=== PATIENT | male | born 1955 | race Caucasian/White ===

== ENCOUNTER 2021-05-13 16:29 | Inpatient (IN) ==
[2021-05-14] MEDS ORDERED: Fluticasone Propionate Nasal 50 MCG/SPRAY BOTTLE NS PRN (15:49)
[2021-05-14] MEDS ORDERED: OXYCODONE 20 MG PO PRN (15:49)
[2021-05-14] MEDS ORDERED: D5% in Water 1,000 ML IVC PRN (15:52)
[2021-05-14] MEDS ORDERED: Dextrose Gel 15 GM/37.5 ML TUBE PO PRN ×2 (15:52)
[2021-05-14] MEDS ORDERED: *HR* Dextrose 50 % in Water (Syg) 50 ML SYRINGE IVP PRN (15:52)
[2021-05-14] MEDS: Insulin LISPRO 300 UNITS/3 ML VIAL SUBQ SCH (18:21)
[2021-05-14] MEDS ORDERED: Insulin DETEMIR 100 UNIT/ML per UNIT SUBQ ONE (21:00)
[2021-05-14] MEDS: Gabapentin 300 MG CAPSULE PO SCH (22:01)
[2021-05-14] MEDS: Baclofen 10 MG TABLET PO SCH (22:01)
[2021-05-14] MEDS: cloNIDine HCL 0.1 MG TABLET PO PRN (22:02)
[2021-05-14] MEDS: Multivit/Ca/Min/Fe/FA 1 TAB TABLET PO SCH (22:02)
[2021-05-14] MEDS: *HR* OxyCODONE Immed Rel 5 MG TABLET PO PRN (22:02)
[2021-05-14] MEDS: [UNRECOGNIZED DRUG - REMARK] PO SCH (22:03)
[2021-05-15] MEDS: cloNIDine HCL 0.1 MG TABLET PO PRN (05:30)
[2021-05-15] MEDS: *HR* Enoxaparin 40 MG/0.4 ML SYRINGE SQ SCH (05:30)
[2021-05-15] MEDS: *HR* OxyCODONE Immed Rel 5 MG TABLET PO PRN ×3 (05:31→22:20)
[2021-05-15 07:30] LABS: Basophils % 0.2 %; Eosinophils % 0.3 %; Hematocrit 35.4 % (37.5-50.1); Hemoglobin 11.6 g/dL (12.9-16.9); Immature Granulocytes % 2.3 % (0-4); Lymphocytes # 1.2 K/mcL (0.6-4.6); Lymphocytes % 8.8 %; Mean Corpuscular HGB Conc 32.8 g/dL (31.6-35.5); Mean Corpuscular Hemoglobin 29.1 pg (28.0-33.3); Mean Corpuscular Volume 88.9 fL (83.0-100.0); Mean Platelet Volume 9.5 fL (9.4-12.4); Monocytes # 1.2 K/mcL (0.0-1.3); Monocytes % 8.7 %; Platelet Count 313 K/mcL (140-400); Red Blood Count 3.98 M/mcL (4.19-5.50); Segmented Neutrophils % 79.7 %; White Blood Count 13.6 K/mcL (4.3-11.1)
[2021-05-15 07:31] LABS: Neutrophils # 10.8 K/mcL (1.6-8.9)
[2021-05-15 07:44] LABS: BUN/Creatinine Ratio 38 (6-26); Blood Urea Nitrogen 48 mg/dL (8-23); Calcium 9.2 mg/dL (8.6-10.3); Carbon Dioxide 25 mEq/L (23-29); Chloride 103 mEq/L (98-107); Glucose 265 mg/dL (70-105); Osmolality,Calculated 306 (280-300); Potassium 4.4 mEq/L (3.5-5.1); Sodium 137 mEq/L (136-145); eGFR For African Americans > 60 (> 60); eGFR For Non-African Americans 57 (> 60)
[2021-05-15] MEDS: Gabapentin 300 MG CAPSULE PO SCH ×3 (08:29→22:20)
[2021-05-15] MEDS: amLODIPine 5 MG TABLET PO SCH (08:29)
[2021-05-15] MEDS: *HR* Metformin 500 MG TABLET PO SCH ×2 (08:29→18:07)
[2021-05-15] MEDS: predniSONE 20 MG TABLET PO SCH (08:29)
[2021-05-15] MEDS: Baclofen 10 MG TABLET PO SCH ×3 (08:29→22:20)
[2021-05-15] MEDS: hydroCHLOROthiazide 25 MG TABLET PO SCH (08:29)
[2021-05-15] MEDS: lisinopriL 20 MG TABLET PO SCH (08:29)
[2021-05-15] MEDS: Aspirin Enteric Coated 81 MG Tablet PO SCH (08:30)
[2021-05-15] MEDS: Insulin LISPRO 300 UNITS/3 ML VIAL SUBQ SCH ×3 (08:41→17:50)
[2021-05-15] MEDS ORDERED: Insulin DETEMIR 100 UNIT/ML X5UNITS SUBQ SCH (09:00)
[2021-05-15] MEDS ORDERED: Insulin DETEMIR 100 UNIT/ML per UNIT SUBQ ONE (21:00)
[2021-05-15] MEDS: Multivit/Ca/Min/Fe/FA 1 TAB TABLET PO SCH (22:20)
[2021-05-15] MEDS: [UNRECOGNIZED DRUG - REMARK] PO SCH (23:40)
[2021-05-16] MEDS: *HR* OxyCODONE Immed Rel 5 MG TABLET PO PRN ×3 (04:42→20:38)
[2021-05-16] MEDS: *HR* Enoxaparin 40 MG/0.4 ML SYRINGE SQ SCH (04:43)
[2021-05-16] MEDS: Insulin LISPRO 300 UNITS/3 ML VIAL SUBQ SCH ×3 (08:11→16:55)
[2021-05-16] MEDS: Baclofen 10 MG TABLET PO SCH ×3 (08:12→20:38)
[2021-05-16] MEDS: *HR* Metformin 500 MG TABLET PO SCH ×2 (08:13→16:55)
[2021-05-16] MEDS: hydroCHLOROthiazide 25 MG TABLET PO SCH (08:13)
[2021-05-16] MEDS: amLODIPine 5 MG TABLET PO SCH (08:13)
[2021-05-16] MEDS: predniSONE 20 MG TABLET PO SCH (08:13)
[2021-05-16] MEDS: Aspirin Enteric Coated 81 MG Tablet PO SCH (08:13)
[2021-05-16] MEDS: Gabapentin 300 MG CAPSULE PO SCH ×3 (08:13→20:39)
[2021-05-16] MEDS: lisinopriL 20 MG TABLET PO SCH (08:13)
[2021-05-16] MEDS: Insulin DETEMIR 100 UNIT/ML X5UNITS SUBQ SCH ×2 (08:20→20:35)
[2021-05-16] MEDS: Multivit/Ca/Min/Fe/FA 1 TAB TABLET PO SCH (20:38)
[2021-05-16] MEDS: [UNRECOGNIZED DRUG - REMARK] PO SCH (20:39)
[2021-05-17] MEDS: Acetaminophen 325 MG TABLET PO PRN ×2 (02:34→20:51)
[2021-05-17] MEDS: *HR* Enoxaparin 40 MG/0.4 ML SYRINGE SQ SCH (04:50)
[2021-05-17 06:01] LABS: Basophils % 0.3 %; Eosinophils # 0.1 K/mcL (0.0-0.6); Eosinophils % 0.7 %; Hemoglobin 11.3 g/dL (12.9-16.9); Immature Granulocytes % 2.2 % (0-4); Lymphocytes # 1.3 K/mcL (0.6-4.6); Lymphocytes % 8.2 %; Mean Corpuscular HGB Conc 32.3 g/dL (31.6-35.5); Mean Corpuscular Hemoglobin 29.2 pg (28.0-33.3); Mean Corpuscular Volume 90.4 fL (83.0-100.0); Mean Platelet Volume 9.8 fL (9.4-12.4); Monocytes % 6.6 %; Neutrophils # 12.8 K/mcL (1.6-8.9); Platelet Count 353 K/mcL (140-400); Red Blood Count 3.87 M/mcL (4.19-5.50); Red Cell Distribution Width 13.2 % (11.5-14.5); White Blood Count 15.6 K/mcL (4.3-11.1)
[2021-05-17 06:17] LABS: Basophils # 0.1 K/mcL (0.0-0.2)
[2021-05-17 06:24] LABS: Calcium 8.6 mg/dL (8.6-10.3); Potassium 4.5 mEq/L (3.5-5.1)
[2021-05-17] MEDS: Baclofen 10 MG TABLET PO SCH ×3 (08:26→20:52)
[2021-05-17] MEDS: Insulin DETEMIR 100 UNIT/ML X5UNITS SUBQ SCH ×2 (08:26→20:56)
[2021-05-17] MEDS: Insulin LISPRO 300 UNITS/3 ML VIAL SUBQ SCH ×3 (08:26→16:44)
[2021-05-17] MEDS: *HR* Metformin 500 MG TABLET PO SCH ×2 (08:27→16:43)
[2021-05-17] MEDS: amLODIPine 5 MG TABLET PO SCH (08:27)
[2021-05-17] MEDS: lisinopriL 20 MG TABLET PO SCH (08:27)
[2021-05-17] MEDS: predniSONE 20 MG TABLET PO SCH (08:27)
[2021-05-17] MEDS: Gabapentin 300 MG CAPSULE PO SCH ×3 (08:27→20:52)
[2021-05-17] MEDS: hydroCHLOROthiazide 25 MG TABLET PO SCH (08:27)
[2021-05-17] MEDS: Aspirin Enteric Coated 81 MG Tablet PO SCH (08:27)
[2021-05-17] MEDS: *HR* OxyCODONE Immed Rel 5 MG TABLET PO PRN ×2 (09:40→16:49)
[2021-05-17] MEDS: Multivit/Ca/Min/Fe/FA 1 TAB TABLET PO SCH (20:53)
[2021-05-17] MEDS: [UNRECOGNIZED DRUG - REMARK] PO SCH (20:56)
[2021-05-18] MEDS: *HR* OxyCODONE Immed Rel 5 MG TABLET PO PRN ×3 (00:17→21:30)
[2021-05-18] MEDS: *HR* Enoxaparin 40 MG/0.4 ML SYRINGE SQ SCH (05:33)
[2021-05-18] MEDS: Aspirin Enteric Coated 81 MG Tablet PO SCH (08:22)
[2021-05-18] MEDS: *HR* Metformin 500 MG TABLET PO SCH ×2 (08:23→16:35)
[2021-05-18] MEDS: amLODIPine 5 MG TABLET PO SCH (08:23)
[2021-05-18] MEDS: Gabapentin 300 MG CAPSULE PO SCH ×3 (08:23→20:13)
[2021-05-18] MEDS: hydroCHLOROthiazide 25 MG TABLET PO SCH (08:23)
[2021-05-18] MEDS: Baclofen 10 MG TABLET PO SCH ×3 (08:24→20:12)
[2021-05-18] MEDS: lisinopriL 20 MG TABLET PO SCH (08:24)
[2021-05-18] MEDS: Insulin DETEMIR 100 UNIT/ML X5UNITS SUBQ SCH ×2 (08:24→21:30)
[2021-05-18] MEDS: Insulin LISPRO 300 UNITS/3 ML VIAL SUBQ SCH ×3 (08:25→16:36)
[2021-05-18] MEDS: Multivit/Ca/Min/Fe/FA 1 TAB TABLET PO SCH (20:14)
[2021-05-18] MEDS: [UNRECOGNIZED DRUG - REMARK] PO SCH (20:15)
[2021-05-19 04:50] LABS: Basophils % 0.3 %; Eosinophils # 0.3 K/mcL (0.0-0.6); Eosinophils % 2.6 %; Hemoglobin 10.2 g/dL (12.9-16.9); Immature Granulocytes % 1.3 % (0-4); Lymphocytes # 1.6 K/mcL (0.6-4.6); Lymphocytes % 14.2 %; Mean Corpuscular HGB Conc 32.9 g/dL (31.6-35.5); Mean Corpuscular Hemoglobin 29.7 pg (28.0-33.3); Mean Corpuscular Volume 90.1 fL (83.0-100.0); Mean Platelet Volume 10.1 fL (9.4-12.4); Monocytes # 0.9 K/mcL (0.0-1.3); Monocytes % 8.3 %; Neutrophils # 8.3 K/mcL (1.6-8.9); Platelet Count 293 K/mcL (140-400); Red Blood Count 3.44 M/mcL (4.19-5.50); Red Cell Distribution Width 13.5 % (11.5-14.5); Segmented Neutrophils % 73.3 %; White Blood Count 11.3 K/mcL (4.3-11.1)
[2021-05-19 05:04] LABS: Calcium 8.1 mg/dL (8.6-10.3)
[2021-05-19] MEDS: *HR* Enoxaparin 40 MG/0.4 ML SYRINGE SQ SCH (06:02)
[2021-05-19] MEDS: Insulin LISPRO 300 UNITS/3 ML VIAL SUBQ SCH ×3 (08:15→18:02)
[2021-05-19] MEDS: Insulin DETEMIR 100 UNIT/ML X5UNITS SUBQ SCH ×2 (08:16→20:07)
[2021-05-19] MEDS: Baclofen 10 MG TABLET PO SCH ×3 (08:18→20:06)
[2021-05-19] MEDS: Aspirin Enteric Coated 81 MG Tablet PO SCH (08:19)
[2021-05-19] MEDS: Gabapentin 300 MG CAPSULE PO SCH ×3 (08:19→20:06)
[2021-05-19] MEDS: *HR* Metformin 500 MG TABLET PO SCH ×2 (08:19→18:02)
[2021-05-19] MEDS: lisinopriL 20 MG TABLET PO SCH (08:19)
[2021-05-19] MEDS: amLODIPine 5 MG TABLET PO SCH (08:19)
[2021-05-19] MEDS: *HR* OxyCODONE Immed Rel 5 MG TABLET PO PRN ×2 (08:27→20:06)
[2021-05-19 19:49] LABS: Estimated Average Glucose 154 mg/dl
[2021-05-19] MEDS: Multivit/Ca/Min/Fe/FA 1 TAB TABLET PO SCH (20:06)
[2021-05-19] MEDS: Doxycycline 100 MG CAPSULE PO SCH (20:06)
[2021-05-19] MEDS: [UNRECOGNIZED DRUG - REMARK] PO SCH (20:11)
[2021-05-20] MEDS: *HR* Enoxaparin 40 MG/0.4 ML SYRINGE SQ SCH (05:30)
[2021-05-20] MEDS: *HR* Metformin 500 MG TABLET PO SCH ×2 (08:07→17:05)
[2021-05-20] MEDS: Doxycycline 100 MG CAPSULE PO SCH ×2 (08:07→22:34)
[2021-05-20] MEDS: Aspirin Enteric Coated 81 MG Tablet PO SCH (08:07)
[2021-05-20] MEDS: *HR* OxyCODONE Immed Rel 5 MG TABLET PO PRN ×3 (08:07→22:33)
[2021-05-20] MEDS: lisinopriL 20 MG TABLET PO SCH (08:08)
[2021-05-20] MEDS: Insulin LISPRO 300 UNITS/3 ML VIAL SUBQ SCH ×3 (08:08→17:05)
[2021-05-20] MEDS: Insulin DETEMIR 100 UNIT/ML X5UNITS SUBQ SCH ×2 (08:08→22:43)
[2021-05-20] MEDS: amLODIPine 5 MG TABLET PO SCH (08:08)
[2021-05-20] MEDS: Baclofen 10 MG TABLET PO SCH ×3 (08:08→22:35)
[2021-05-20] MEDS: Gabapentin 300 MG CAPSULE PO SCH ×3 (08:08→22:34)
[2021-05-20] MEDS ORDERED: Bisacodyl 10 MG RECTAL SUPPOSITORY RC PRN (18:53)
[2021-05-20] MEDS: Multivit/Ca/Min/Fe/FA 1 TAB TABLET PO SCH (22:33)
[2021-05-20] MEDS: [UNRECOGNIZED DRUG - REMARK] PO SCH (22:37)
[2021-05-21] MEDS: *HR* Enoxaparin 40 MG/0.4 ML SYRINGE SQ SCH (06:56)
[2021-05-21] MEDS: Insulin LISPRO 300 UNITS/3 ML VIAL SUBQ SCH ×3 (08:12→17:38)
[2021-05-21] MEDS: Insulin DETEMIR 100 UNIT/ML X5UNITS SUBQ SCH ×2 (08:13→20:34)
[2021-05-21] MEDS: Gabapentin 300 MG CAPSULE PO SCH ×3 (08:14→20:22)
[2021-05-21] MEDS: *HR* Metformin 500 MG TABLET PO SCH ×2 (08:14→17:37)
[2021-05-21] MEDS: Baclofen 10 MG TABLET PO SCH ×3 (08:14→20:22)
[2021-05-21] MEDS: Aspirin Enteric Coated 81 MG Tablet PO SCH (08:14)
[2021-05-21] MEDS: lisinopriL 20 MG TABLET PO SCH (08:14)
[2021-05-21] MEDS: amLODIPine 5 MG TABLET PO SCH (08:15)
[2021-05-21] MEDS: Doxycycline 100 MG CAPSULE PO SCH ×2 (08:15→20:22)
[2021-05-21] MEDS: *HR* OxyCODONE Immed Rel 5 MG TABLET PO PRN (09:39)
[2021-05-21] MEDS: Sennosides/Docusate Sodium TABLET PO PRN (20:22)
[2021-05-21] MEDS: Multivit/Ca/Min/Fe/FA 1 TAB TABLET PO SCH (20:22)
[2021-05-21] MEDS: [UNRECOGNIZED DRUG - REMARK] PO SCH (20:23)
[2021-05-22] MEDS: *HR* Enoxaparin 40 MG/0.4 ML SYRINGE SQ SCH (05:33)
[2021-05-22] MEDS: lisinopriL 20 MG TABLET PO SCH (08:28)
[2021-05-22] MEDS: *HR* Metformin 500 MG TABLET PO SCH ×2 (08:28→16:37)
[2021-05-22] MEDS: Gabapentin 300 MG CAPSULE PO SCH ×3 (08:29→20:35)
[2021-05-22] MEDS: Baclofen 10 MG TABLET PO SCH ×3 (08:29→20:36)
[2021-05-22] MEDS: Aspirin Enteric Coated 81 MG Tablet PO SCH (08:29)
[2021-05-22] MEDS: amLODIPine 5 MG TABLET PO SCH (08:29)
[2021-05-22] MEDS: Sennosides/Docusate Sodium TABLET PO PRN (08:29)
[2021-05-22] MEDS: Doxycycline 100 MG CAPSULE PO SCH (08:29)
[2021-05-22] MEDS: Insulin LISPRO 300 UNITS/3 ML VIAL SUBQ SCH ×3 (08:30→16:31)
[2021-05-22] MEDS: Insulin DETEMIR 100 UNIT/ML X5UNITS SUBQ SCH ×2 (08:30→20:53)
[2021-05-22] MEDS: *HR* OxyCODONE Immed Rel 5 MG TABLET PO PRN (12:08)
[2021-05-22] MEDS: Sennosides/Docusate Sodium TABLET PO SCH (20:36)
[2021-05-22] MEDS: Multivit/Ca/Min/Fe/FA 1 TAB TABLET PO SCH (20:36)
[2021-05-22] MEDS: [UNRECOGNIZED DRUG - REMARK] PO SCH (20:36)
[2021-05-23] MEDS: *HR* Enoxaparin 40 MG/0.4 ML SYRINGE SQ SCH (05:21)
[2021-05-23] MEDS: Sennosides/Docusate Sodium TABLET PO SCH ×2 (08:43→20:14)
[2021-05-23] MEDS: *HR* Metformin 500 MG TABLET PO SCH ×2 (08:43→16:44)
[2021-05-23] MEDS: lisinopriL 20 MG TABLET PO SCH (08:43)
[2021-05-23] MEDS: Aspirin Enteric Coated 81 MG Tablet PO SCH (08:43)
[2021-05-23] MEDS: Gabapentin 300 MG CAPSULE PO SCH ×3 (08:43→20:13)
[2021-05-23] MEDS: amLODIPine 5 MG TABLET PO SCH (08:43)
[2021-05-23] MEDS: Baclofen 10 MG TABLET PO SCH ×3 (08:44→20:15)
[2021-05-23] MEDS: Insulin DETEMIR 100 UNIT/ML X5UNITS SUBQ SCH ×2 (08:44→20:39)
[2021-05-23] MEDS: Insulin LISPRO 300 UNITS/3 ML VIAL SUBQ SCH ×3 (08:46→16:47)
[2021-05-23] MEDS: *HR* OxyCODONE Immed Rel 5 MG TABLET PO PRN ×3 (08:55→23:25)
[2021-05-23] MEDS: Multivit/Ca/Min/Fe/FA 1 TAB TABLET PO SCH (20:13)
[2021-05-23] MEDS: [UNRECOGNIZED DRUG - REMARK] PO SCH (20:15)
[2021-05-24] MEDS: *HR* Enoxaparin 40 MG/0.4 ML SYRINGE SQ SCH (06:55)
[2021-05-24] MEDS: Sennosides/Docusate Sodium TABLET PO SCH ×2 (08:49→20:35)
[2021-05-24] MEDS: amLODIPine 5 MG TABLET PO SCH (08:49)
[2021-05-24] MEDS: Gabapentin 300 MG CAPSULE PO SCH ×3 (08:49→20:34)
[2021-05-24] MEDS: *HR* Metformin 500 MG TABLET PO SCH ×2 (08:49→15:42)
[2021-05-24] MEDS: Baclofen 10 MG TABLET PO SCH ×3 (08:49→20:35)
[2021-05-24] MEDS: lisinopriL 20 MG TABLET PO SCH (08:50)
[2021-05-24] MEDS: Insulin DETEMIR 100 UNIT/ML X5UNITS SUBQ SCH ×2 (08:50→20:35)
[2021-05-24] MEDS: Aspirin Enteric Coated 81 MG Tablet PO SCH (08:50)
[2021-05-24] MEDS: Insulin LISPRO 300 UNITS/3 ML VIAL SUBQ SCH ×3 (08:54→18:01)
[2021-05-24] MEDS: *HR* OxyCODONE Immed Rel 5 MG TABLET PO PRN ×2 (13:36→22:59)
[2021-05-24] MEDS: Multivit/Ca/Min/Fe/FA 1 TAB TABLET PO SCH (20:34)
[2021-05-24] MEDS: [UNRECOGNIZED DRUG - REMARK] PO SCH (20:34)
[2021-05-24] MEDS: Acetaminophen 325 MG TABLET PO PRN (20:42)
[2021-05-24] MEDS ORDERED: Ondansetron ODT 4 MG TAB.RAPDIS SL PRN (23:13)
[2021-05-25] MEDS: *HR* Enoxaparin 40 MG/0.4 ML SYRINGE SQ SCH (05:36)
[2021-05-25 07:33] LABS: Hemoglobin 9.5 g/dL (12.9-16.9); Mean Corpuscular HGB Conc 31.7 g/dL (31.6-35.5); Mean Corpuscular Hemoglobin 29.1 pg (28.0-33.3); Mean Platelet Volume 10.4 fL (9.4-12.4); Platelet Count 254 K/mcL (140-400); Red Blood Count 3.26 M/mcL (4.19-5.50); Red Cell Distribution Width 13.9 % (11.5-14.5); White Blood Count 10.2 K/mcL (4.3-11.1)
[2021-05-25 07:58] LABS: Alanine Aminotransferase 15 Units/L (7-52); Albumin 2.5 g/dL (3.5-5.7); Albumin/Globulin Ratio 0.8 (1.1-2.2); Alkaline Phosphatase 61 Units/L (34-104); Aspartate Amino Transferase 12 Units/L (13-39); BUN/Creatinine Ratio 31 (6-26); Bilirubin,Total 0.4 mg/dL (0.3-1.0); Blood Urea Nitrogen 41 mg/dL (8-23); Calcium 8.2 mg/dL (8.6-10.3); Carbon Dioxide 24 mEq/L (23-29); Chloride 105 mEq/L (98-107); Globulin 3.1 g/dL (2.4-3.5); Glucose 185 mg/dL (70-105); Magnesium 1.4 mg/dL (1.6-2.6); Osmolality,Calculated 301 (280-300); Potassium 4.8 mEq/L (3.5-5.1); Sodium 138 mEq/L (136-145); Total Protein 5.6 g/dL (6.4-8.9); eGFR For African Americans > 60 (> 60); eGFR For Non-African Americans 54 (> 60)
[2021-05-25] MEDS: Insulin LISPRO 300 UNITS/3 ML VIAL SUBQ SCH ×3 (08:16→17:05)
[2021-05-25] MEDS: Insulin DETEMIR 100 UNIT/ML X5UNITS SUBQ SCH ×2 (08:17→23:47)
[2021-05-25] MEDS: Aspirin Enteric Coated 81 MG Tablet PO SCH (08:19)
[2021-05-25] MEDS: *HR* Metformin 500 MG TABLET PO SCH (08:19)
[2021-05-25] MEDS: Gabapentin 300 MG CAPSULE PO SCH ×3 (08:19→23:38)
[2021-05-25] MEDS: Sennosides/Docusate Sodium TABLET PO SCH ×2 (08:19→23:37)
[2021-05-25] MEDS: Baclofen 10 MG TABLET PO SCH ×3 (08:19→23:38)
[2021-05-25] MEDS: lisinopriL 20 MG TABLET PO SCH (08:20)
[2021-05-25] MEDS: amLODIPine 5 MG TABLET PO SCH (08:20)
[2021-05-25] MEDS: *HR* OxyCODONE Immed Rel 5 MG TABLET PO PRN ×3 (08:23→23:49)
[2021-05-25] MEDS ORDERED: Isovue-370 500 ML BOTTLE IVP ONE (12:51)
[2021-05-25] MEDS: Multivit/Ca/Min/Fe/FA 1 TAB TABLET PO SCH (23:38)
[2021-05-25] MEDS: [UNRECOGNIZED DRUG - REMARK] PO SCH (23:41)
[2021-05-26] MEDS: *HR* Enoxaparin 40 MG/0.4 ML SYRINGE SQ SCH (06:05)
[2021-05-26] MEDS: Insulin LISPRO 300 UNITS/3 ML VIAL SUBQ SCH ×3 (08:25→17:32)
[2021-05-26] MEDS: lisinopriL 20 MG TABLET PO SCH (08:26)
[2021-05-26] MEDS: Gabapentin 300 MG CAPSULE PO SCH ×3 (08:26→21:09)
[2021-05-26] MEDS: Insulin DETEMIR 100 UNIT/ML X5UNITS SUBQ SCH ×2 (08:26→21:18)
[2021-05-26] MEDS: Aspirin Enteric Coated 81 MG Tablet PO SCH (08:27)
[2021-05-26] MEDS: *HR* OxyCODONE Immed Rel 5 MG TABLET PO PRN ×3 (08:27→21:10)
[2021-05-26] MEDS: amLODIPine 5 MG TABLET PO SCH (08:27)
[2021-05-26] MEDS: Baclofen 10 MG TABLET PO SCH ×3 (08:27→21:10)
[2021-05-26] MEDS: Sennosides/Docusate Sodium TABLET PO SCH ×2 (08:28→21:09)
[2021-05-26] MEDS: Magnesium Oxide 400 MG TABLET PO SCH ×2 (12:19→21:11)
[2021-05-26 14:58] LABS: Hematocrit 29.9 % (37.5-50.1); Hemoglobin 9.5 g/dL (12.9-16.9); Mean Corpuscular HGB Conc 31.8 g/dL (31.6-35.5); Mean Corpuscular Hemoglobin 29.3 pg (28.0-33.3); Mean Corpuscular Volume 92.3 fL (83.0-100.0); Mean Platelet Volume 9.9 fL (9.4-12.4); Platelet Count 246 K/mcL (140-400); Red Blood Count 3.24 M/mcL (4.19-5.50); Red Cell Distribution Width 13.8 % (11.5-14.5); White Blood Count 12.3 K/mcL (4.3-11.1)
[2021-05-26 15:15] LABS: Calcium 8.8 mg/dL (8.6-10.3); Potassium 5.6 mEq/L (3.5-5.1)
[2021-05-26] MEDS: Piperacillin/Tazobactam 3.375 GM in 0.9 % Sodium Chloride Mini Bag 100 ML IVPB SCH (15:33)
[2021-05-26 21:05] VITALS: BP 136/75; PULSE 66; RESP 16; TEMP 98.5; O2SAT 99
[2021-05-26] MEDS: Multivit/Ca/Min/Fe/FA 1 TAB TABLET PO SCH (21:09)
[2021-05-26] MEDS: [UNRECOGNIZED DRUG - REMARK] PO SCH (21:12)
[2021-05-27] MEDS: Piperacillin/Tazobactam 3.375 GM in 0.9 % Sodium Chloride Mini Bag 100 ML IVPB SCH (01:32)
== END 2021-05-27 02:03 | disposition short-term general hospital (02) | DRG 945 ==
LOC: INPGRE 05-14 17:21
PROVIDERS: ADMIT Family Medicine; ATTEND Family Medicine

== ENCOUNTER 2022-03-09 17:40 | Inpatient (IN) ==
[2022-03-11] MEDS ORDERED: *HR* OxyCODONE Immed Rel 5 MG TABLET PO PRN (14:18)
[2022-03-11] MEDS ORDERED: *HR* OxyCODONE/APAP 5/325 TABLET PO SCH (14:30)
[2022-03-11] MEDS: *HR* OxyCODONE Immed Rel 5 MG TABLET PO PRN ×3 (16:50→23:51)
[2022-03-11] MEDS: Simethicone 80 MG TAB.CHEW PO SCH ×2 (16:50→20:52)
[2022-03-11] MEDS: cefTRIAXone 2,000 MG in 0.9 % Sodium Chloride 20 ML IVP SCH (16:50)
[2022-03-11] MEDS ORDERED: Dextrose Gel 15 GM/37.5 ML TUBE PO PRN ×2 (16:57)
[2022-03-11] MEDS ORDERED: *HR* Dextrose 50 % in Water (Syg) 50 ML SYRINGE IVP PRN (16:57)
[2022-03-11] MEDS ORDERED: D5% in Water 1,000 ML IVC PRN (16:57)
[2022-03-11] MEDS: Insulin LISPRO 300 UNITS/3 ML VIAL SUBQ SCH ×2 (16:59→20:54)
[2022-03-11] MEDS: polyethylene glycoL 3350 17 GM POWD.PACK PO SCH (20:46)
[2022-03-11] MEDS: Baclofen 10 MG TABLET PO SCH (20:47)
[2022-03-11] MEDS: Apixaban 5 MG TABLET PO SCH (20:48)
[2022-03-11] MEDS: Melatonin 3 MG TABLET PO SCH (20:50)
[2022-03-11] MEDS: Sennosides/Docusate Sodium TABLET PO SCH (20:50)
[2022-03-11] MEDS: Ascorbic Acid 500 MG TABLET PO SCH (20:50)
[2022-03-11] MEDS: Gabapentin 400 MG CAPSULE PO SCH (20:51)
[2022-03-11] MEDS: traZODone 50 MG TABLET PO SCH (20:51)
[2022-03-11] MEDS: CALCIPOTRIENE TP SCH (20:54)
[2022-03-11] MEDS ORDERED: [UNRECOGNIZED DRUG - OTHER] PO SCH (21:00)
[2022-03-11] MEDS: Acetaminophen 325 MG TABLET PO PRN (22:38)
[2022-03-12] MEDS ORDERED: Morphine Sulfate 2 MG/ML SYRINGE IVP ONE (01:23)
[2022-03-12] MEDS: Ondansetron ODT 4 MG TAB.RAPDIS SL PRN (03:36)
[2022-03-12 05:03] LABS: Basophils # 0.1 K/mcL (0.0-0.2); Basophils % 0.9 %; Eosinophils # 0.5 K/mcL (0.0-0.6); Eosinophils % 4.8 %; Hematocrit 28.1 % (37.5-50.1); Hemoglobin 8.6 g/dL (12.9-16.9); Immature Granulocytes % 1.9 % (0-4); Lymphocytes # 1.1 K/mcL (0.6-4.6); Lymphocytes % 11.8 %; Mean Corpuscular HGB Conc 30.6 g/dL (31.6-35.5); Mean Corpuscular Hemoglobin 27.7 pg (28.0-33.3); Mean Corpuscular Volume 90.4 fL (83.0-100.0); Mean Platelet Volume 9.9 fL (9.4-12.4); Monocytes # 0.9 K/mcL (0.0-1.3); Neutrophils # 6.9 K/mcL (1.6-8.9); Platelet Count 401 K/mcL (140-400); Red Blood Count 3.11 M/mcL (4.19-5.50); Red Cell Distribution Width 18.6 % (11.5-14.5); Segmented Neutrophils % 71.6 %; White Blood Count 9.7 K/mcL (4.3-11.1)
[2022-03-12] MEDS: Acetaminophen 325 MG TABLET PO PRN (05:10)
[2022-03-12 05:20] LABS: Alanine Aminotransferase 21 Units/L (7-52); Albumin 2.5 g/dL (3.5-5.7); Albumin/Globulin Ratio 0.6 (1.1-2.2); Alkaline Phosphatase 129 Units/L (34-104); Aspartate Amino Transferase 41 Units/L (13-39); BUN/Creatinine Ratio 22 (6-26); Bilirubin,Total 0.2 mg/dL (0.3-1.0); Blood Urea Nitrogen 22 mg/dL (8-23); Calcium 8.2 mg/dL (8.6-10.3); Carbon Dioxide 25 mEq/L (23-29); Chloride 101 mEq/L (98-107); Glucose 313 mg/dL (70-105); Magnesium 1.9 mg/dL (1.6-2.6); Osmolality,Calculated 291 (280-300); Potassium 4.6 mEq/L (3.5-5.1); Sodium 133 mEq/L (136-145); Total Protein 6.5 g/dL (6.4-8.9); eGFR For African Americans > 60 (> 60); eGFR For Non-African Americans > 60 (> 60)
[2022-03-12] MEDS: *HR* OxyCODONE Immed Rel 5 MG TABLET PO PRN ×5 (05:58→21:25)
[2022-03-12] MEDS: Ascorbic Acid 500 MG TABLET PO SCH ×3 (08:49→21:30)
[2022-03-12] MEDS: Metoprolol XL (24 HR) Succ 25 MG TAB.ER.24H PO SCH (08:49)
[2022-03-12] MEDS: Gabapentin 400 MG CAPSULE PO SCH ×3 (08:49→21:27)
[2022-03-12] MEDS: Apixaban 5 MG TABLET PO SCH ×2 (08:49→21:13)
[2022-03-12] MEDS: Baclofen 10 MG TABLET PO SCH ×3 (08:49→21:28)
[2022-03-12] MEDS: Cholecalciferol (D-3) 1,000 UNIT (25MCG) TABLET PO SCH (08:49)
[2022-03-12] MEDS: Sennosides/Docusate Sodium TABLET PO SCH ×2 (08:49→21:29)
[2022-03-12] MEDS: Simethicone 80 MG TAB.CHEW PO SCH ×4 (08:49→21:24)
[2022-03-12] MEDS: polyethylene glycoL 3350 17 GM POWD.PACK PO SCH ×2 (08:50→21:24)
[2022-03-12] MEDS: Insulin LISPRO 300 UNITS/3 ML VIAL SUBQ SCH ×4 (08:50→21:30)
[2022-03-12] MEDS: CALCIPOTRIENE TP SCH ×2 (08:50→21:13)
[2022-03-12] MEDS ORDERED: [UNRECOGNIZED DRUG - OTHER] IV SCH (09:00)
[2022-03-12] MEDS ORDERED: DEXTROSE ISO IV SCH (09:00)
[2022-03-12] MEDS ORDERED: CEFTRIAXONE NA IV SCH (09:00)
[2022-03-12] MEDS ORDERED: Insulin DETEMIR 100 UNIT/ML per UNIT SUBQ ONE (15:00)
[2022-03-12] MEDS: cefTRIAXone 2,000 MG in 0.9 % Sodium Chloride 20 ML IVP SCH (17:01)
[2022-03-12] MEDS: traZODone 50 MG TABLET PO SCH (21:25)
[2022-03-12] MEDS: Melatonin 3 MG TABLET PO SCH (21:26)
[2022-03-12] MEDS: Ammonium Lactate 30 APPL/225 GM BOTTLE TP SCH (21:30)
[2022-03-13] MEDS: *HR* OxyCODONE Immed Rel 5 MG TABLET PO PRN ×4 (04:15→23:24)
[2022-03-13] MEDS: Cholecalciferol (D-3) 1,000 UNIT (25MCG) TABLET PO SCH (08:34)
[2022-03-13] MEDS: Gabapentin 400 MG CAPSULE PO SCH ×3 (08:35→23:15)
[2022-03-13] MEDS: Apixaban 5 MG TABLET PO SCH ×2 (08:35→23:08)
[2022-03-13] MEDS: Metoprolol XL (24 HR) Succ 25 MG TAB.ER.24H PO SCH (08:35)
[2022-03-13] MEDS: Simethicone 80 MG TAB.CHEW PO SCH ×4 (08:35→23:26)
[2022-03-13] MEDS: Sennosides/Docusate Sodium TABLET PO SCH ×2 (08:35→23:33)
[2022-03-13] MEDS: Baclofen 10 MG TABLET PO SCH ×3 (08:36→23:09)
[2022-03-13] MEDS: Insulin LISPRO 300 UNITS/3 ML VIAL SUBQ SCH ×4 (08:40→23:28)
[2022-03-13] MEDS ORDERED: Insulin DETEMIR 100 UNIT/ML per UNIT SUBQ ONE (09:00)
[2022-03-13] MEDS: Insulin DETEMIR 100 UNIT/ML X5UNITS SUBQ SCH ×2 (09:29→23:33)
[2022-03-13] MEDS: polyethylene glycoL 3350 17 GM POWD.PACK PO SCH ×2 (09:37→23:31)
[2022-03-13] MEDS: CALCIPOTRIENE TP SCH ×2 (09:38→23:33)
[2022-03-13] MEDS: Ascorbic Acid 500 MG TABLET PO SCH ×3 (09:38→23:15)
[2022-03-13] MEDS: cefTRIAXone 2,000 MG in 0.9 % Sodium Chloride 20 ML IVP SCH (17:08)
[2022-03-13] MEDS: Melatonin 3 MG TABLET PO SCH (23:08)
[2022-03-13] MEDS: traZODone 50 MG TABLET PO SCH (23:26)
[2022-03-13] MEDS: Ammonium Lactate 30 APPL/225 GM BOTTLE TP SCH (23:41)
[2022-03-14] MEDS: *HR* OxyCODONE Immed Rel 5 MG TABLET PO PRN ×3 (06:11→18:31)
[2022-03-14] MEDS ORDERED: *HR* FentaNYL PATCH 25 MCG PATCH TD SCH (08:00)
[2022-03-14] MEDS: Apixaban 5 MG TABLET PO SCH ×2 (09:36→23:41)
[2022-03-14] MEDS: Simethicone 80 MG TAB.CHEW PO SCH ×4 (09:36→23:44)
[2022-03-14] MEDS: Sennosides/Docusate Sodium TABLET PO SCH ×2 (09:36→23:41)
[2022-03-14] MEDS: Cholecalciferol (D-3) 1,000 UNIT (25MCG) TABLET PO SCH (09:36)
[2022-03-14] MEDS: Ascorbic Acid 500 MG TABLET PO SCH ×3 (09:37→23:41)
[2022-03-14] MEDS: Metoprolol XL (24 HR) Succ 25 MG TAB.ER.24H PO SCH (09:37)
[2022-03-14] MEDS: Baclofen 10 MG TABLET PO SCH ×3 (09:37→23:37)
[2022-03-14] MEDS: Gabapentin 400 MG CAPSULE PO SCH ×3 (09:37→23:39)
[2022-03-14] MEDS: polyethylene glycoL 3350 17 GM POWD.PACK PO SCH ×2 (09:37→23:36)
[2022-03-14] MEDS: Insulin LISPRO 300 UNITS/3 ML VIAL SUBQ SCH ×3 (09:38→17:43)
[2022-03-14] MEDS: Insulin DETEMIR 100 UNIT/ML X5UNITS SUBQ SCH ×2 (09:43→23:45)
[2022-03-14] MEDS: CALCIPOTRIENE TP SCH (12:30)
[2022-03-14] MEDS: cefTRIAXone 2,000 MG in 0.9 % Sodium Chloride 20 ML IVP SCH (14:35)
[2022-03-14] MEDS: traZODone 50 MG TABLET PO SCH (23:40)
[2022-03-14] MEDS: Melatonin 3 MG TABLET PO SCH (23:42)
[2022-03-15] MEDS: Ammonium Lactate 30 APPL/225 GM BOTTLE TP SCH (00:10)
[2022-03-15] MEDS: Insulin LISPRO 300 UNITS/3 ML VIAL SUBQ SCH ×4 (00:10→17:18)
[2022-03-15] MEDS: CALCIPOTRIENE TP SCH ×2 (00:10→08:39)
[2022-03-15] MEDS: *HR* OxyCODONE Immed Rel 5 MG TABLET PO PRN ×4 (00:47→19:03)
[2022-03-15] MEDS: Acetaminophen 325 MG TABLET PO PRN ×2 (08:37)
[2022-03-15] MEDS: Ascorbic Acid 500 MG TABLET PO SCH ×2 (08:37→17:18)
[2022-03-15] MEDS: Baclofen 10 MG TABLET PO SCH ×2 (08:37→17:17)
[2022-03-15] MEDS: Gabapentin 400 MG CAPSULE PO SCH ×2 (08:37→17:17)
[2022-03-15] MEDS: Cholecalciferol (D-3) 1,000 UNIT (25MCG) TABLET PO SCH (08:37)
[2022-03-15] MEDS: Apixaban 5 MG TABLET PO SCH (08:37)
[2022-03-15] MEDS: Metoprolol XL (24 HR) Succ 25 MG TAB.ER.24H PO SCH (08:37)
[2022-03-15] MEDS: Sennosides/Docusate Sodium TABLET PO SCH (08:38)
[2022-03-15] MEDS: Insulin DETEMIR 100 UNIT/ML X5UNITS SUBQ SCH (08:38)
[2022-03-15] MEDS: Simethicone 80 MG TAB.CHEW PO SCH ×3 (08:38→17:18)
[2022-03-15] MEDS: polyethylene glycoL 3350 17 GM POWD.PACK PO SCH (08:39)
[2022-03-15] MEDS: cefTRIAXone 2,000 MG in 0.9 % Sodium Chloride 20 ML IVP SCH (17:18)
[2022-03-16] MEDS: Insulin DETEMIR 100 UNIT/ML X5UNITS SUBQ SCH ×3 (00:06→21:14)
[2022-03-16] MEDS: Apixaban 5 MG TABLET PO SCH ×3 (00:07→21:12)
[2022-03-16] MEDS: Melatonin 3 MG TABLET PO SCH ×2 (00:08→21:55)
[2022-03-16] MEDS: traZODone 50 MG TABLET PO SCH ×2 (00:08→21:55)
[2022-03-16] MEDS: Gabapentin 400 MG CAPSULE PO SCH ×4 (00:09→21:12)
[2022-03-16] MEDS: Baclofen 10 MG TABLET PO SCH ×2 (00:10→08:13)
[2022-03-16] MEDS: Simethicone 80 MG TAB.CHEW PO SCH ×5 (00:11→21:12)
[2022-03-16] MEDS: *HR* OxyCODONE Immed Rel 5 MG TABLET PO PRN ×2 (00:11→06:58)
[2022-03-16] MEDS: Insulin LISPRO 300 UNITS/3 ML VIAL SUBQ SCH ×5 (00:13→21:14)
[2022-03-16] MEDS: Ascorbic Acid 500 MG TABLET PO SCH ×4 (00:13→21:12)
[2022-03-16] MEDS: Ammonium Lactate 30 APPL/225 GM BOTTLE TP SCH ×2 (00:13→21:13)
[2022-03-16] MEDS: polyethylene glycoL 3350 17 GM POWD.PACK PO SCH ×3 (00:14→21:14)
[2022-03-16] MEDS: Sennosides/Docusate Sodium TABLET PO SCH ×3 (00:14→21:12)
[2022-03-16] MEDS: CALCIPOTRIENE TP SCH ×3 (00:14→21:15)
[2022-03-16] MEDS: Acetaminophen 325 MG TABLET PO PRN (00:15)
[2022-03-16] MEDS: Metoprolol XL (24 HR) Succ 25 MG TAB.ER.24H PO SCH (08:12)
[2022-03-16] MEDS: Cholecalciferol (D-3) 1,000 UNIT (25MCG) TABLET PO SCH (08:14)
[2022-03-16] MEDS: Ondansetron ODT 4 MG TAB.RAPDIS SL PRN (09:46)
[2022-03-16] MEDS ORDERED: *HR* OxyCODONE Immed Rel 5 MG TABLET PO PRN (09:47)
[2022-03-16] MEDS ORDERED: *HR* FentaNYL PATCH 12 MCG PATCH TD SCH (11:00)
[2022-03-16] MEDS: *HR* HYDROcodone/Acet 10/325 mg TABLET PO PRN ×2 (11:07→18:29)
[2022-03-16] MEDS: *HR* FentaNYL PATCH 25 MCG PATCH TD SCH (11:15)
[2022-03-16] MEDS: *HR* FentaNYL PATCH 12 MCG PATCH TD SCH (11:26)
[2022-03-16] MEDS: diazePAM 2 MG TABLET PO PRN ×2 (14:56→23:45)
[2022-03-16] MEDS: cefTRIAXone 2,000 MG in 0.9 % Sodium Chloride 20 ML IVP SCH (14:57)
[2022-03-17] MEDS: *HR* HYDROcodone/Acet 10/325 mg TABLET PO PRN ×4 (02:07→21:25)
[2022-03-17] MEDS: Simethicone 80 MG TAB.CHEW PO SCH ×4 (08:44→21:21)
[2022-03-17] MEDS: Metoprolol XL (24 HR) Succ 25 MG TAB.ER.24H PO SCH (08:44)
[2022-03-17] MEDS: Apixaban 5 MG TABLET PO SCH ×2 (08:45→21:25)
[2022-03-17] MEDS: Gabapentin 400 MG CAPSULE PO SCH ×3 (08:45→21:25)
[2022-03-17] MEDS: Cholecalciferol (D-3) 1,000 UNIT (25MCG) TABLET PO SCH (08:45)
[2022-03-17] MEDS: Sennosides/Docusate Sodium TABLET PO SCH ×2 (08:45→21:24)
[2022-03-17] MEDS: Ascorbic Acid 500 MG TABLET PO SCH ×3 (08:46→21:22)
[2022-03-17] MEDS: polyethylene glycoL 3350 17 GM POWD.PACK PO SCH ×2 (08:47→21:21)
[2022-03-17] MEDS: Insulin DETEMIR 100 UNIT/ML X5UNITS SUBQ SCH ×2 (08:57→21:37)
[2022-03-17] MEDS: diazePAM 2 MG TABLET PO PRN ×3 (08:57→21:37)
[2022-03-17] MEDS: Insulin LISPRO 300 UNITS/3 ML VIAL SUBQ SCH ×4 (08:58→21:28)
[2022-03-17] MEDS: CALCIPOTRIENE TP SCH ×2 (08:58→21:27)
[2022-03-17] MEDS: cefTRIAXone 2,000 MG in 0.9 % Sodium Chloride 20 ML IVP SCH (15:12)
[2022-03-17] MEDS: Acetaminophen 325 MG TABLET PO PRN (17:05)
[2022-03-17] MEDS: Melatonin 3 MG TABLET PO SCH (21:22)
[2022-03-17] MEDS: traZODone 50 MG TABLET PO SCH (21:25)
[2022-03-17] MEDS: Ammonium Lactate 30 APPL/225 GM BOTTLE TP SCH (21:28)
[2022-03-17] MEDS: *HR* HYDROcodone/Acet 7.5/325 mg TABLET PO PRN (23:51)
[2022-03-18] MEDS: *HR* HYDROcodone/Acet 10/325 mg TABLET PO PRN ×3 (03:42→16:25)
[2022-03-18] MEDS: Insulin DETEMIR 100 UNIT/ML X5UNITS SUBQ SCH ×2 (08:18→20:18)
[2022-03-18] MEDS: Insulin LISPRO 300 UNITS/3 ML VIAL SUBQ SCH ×4 (08:18→20:18)
[2022-03-18] MEDS: Ascorbic Acid 500 MG TABLET PO SCH ×3 (08:18→20:16)
[2022-03-18] MEDS: Metoprolol XL (24 HR) Succ 25 MG TAB.ER.24H PO SCH (08:18)
[2022-03-18] MEDS: Apixaban 5 MG TABLET PO SCH ×2 (08:19→20:15)
[2022-03-18] MEDS: Gabapentin 400 MG CAPSULE PO SCH ×3 (08:19→20:16)
[2022-03-18] MEDS: Cholecalciferol (D-3) 1,000 UNIT (25MCG) TABLET PO SCH (08:19)
[2022-03-18] MEDS: diazePAM 2 MG TABLET PO PRN (08:19)
[2022-03-18] MEDS: Sennosides/Docusate Sodium TABLET PO SCH ×2 (08:19→20:17)
[2022-03-18] MEDS: Simethicone 80 MG TAB.CHEW PO SCH ×4 (08:19→20:16)
[2022-03-18] MEDS: CALCIPOTRIENE TP SCH ×2 (08:20→20:17)
[2022-03-18] MEDS: polyethylene glycoL 3350 17 GM POWD.PACK PO SCH ×2 (08:20→20:15)
[2022-03-18] MEDS: *HR* HYDROcodone/Acet 7.5/325 mg TABLET PO PRN (11:56)
[2022-03-18 15:10] LABS: Basophils # 0.1 K/mcL (0.0-0.2); Basophils % 0.5 %; Eosinophils # 0.3 K/mcL (0.0-0.6); Eosinophils % 2.5 %; Hematocrit 27.5 % (37.5-50.1); Hemoglobin 8.6 g/dL (12.9-16.9); Immature Granulocytes % 0.5 % (0-4); Lymphocytes # 1.1 K/mcL (0.6-4.6); Lymphocytes % 8.6 %; Mean Corpuscular HGB Conc 31.3 g/dL (31.6-35.5); Mean Corpuscular Hemoglobin 28.2 pg (28.0-33.3); Mean Corpuscular Volume 90.2 fL (83.0-100.0); Mean Platelet Volume 9.4 fL (9.4-12.4); Monocytes # 1.3 K/mcL (0.0-1.3); Neutrophils # 10.1 K/mcL (1.6-8.9); Platelet Count 355 K/mcL (140-400); Red Blood Count 3.05 M/mcL (4.19-5.50); Red Cell Distribution Width 17.6 % (11.5-14.5); Segmented Neutrophils % 77.9 %
[2022-03-18 15:27] LABS: Alanine Aminotransferase 15 Units/L (7-52); Albumin 2.6 g/dL (3.5-5.7); Albumin/Globulin Ratio 0.6 (1.1-2.2); Alkaline Phosphatase 145 Units/L (34-104); Aspartate Amino Transferase 19 Units/L (13-39); BUN/Creatinine Ratio 33 (6-26); Bilirubin,Total 0.2 mg/dL (0.3-1.0); Blood Urea Nitrogen 29 mg/dL (8-23); Calcium 9.2 mg/dL (8.6-10.3); Carbon Dioxide 29 mEq/L (23-29); Chloride 94 mEq/L (98-107); Globulin 4.5 g/dL (2.4-3.5); Glucose 210 mg/dL (70-105); Osmolality,Calculated 280 (280-300); Potassium 4.9 mEq/L (3.5-5.1); Sodium 129 mEq/L (136-145); Total Protein 7.1 g/dL (6.4-8.9); eGFR For African Americans > 60 (> 60); eGFR For Non-African Americans > 60 (> 60)
[2022-03-18] MEDS: cefTRIAXone 2,000 MG in 0.9 % Sodium Chloride 20 ML IVP SCH (16:25)
[2022-03-18 19:26] LABS: C-Reactive Protein 128 mg/L (Less than 10)
[2022-03-18] MEDS: Melatonin 3 MG TABLET PO SCH (20:15)
[2022-03-18] MEDS: traZODone 50 MG TABLET PO SCH (20:17)
[2022-03-18] MEDS: Ammonium Lactate 30 APPL/225 GM BOTTLE TP SCH (20:33)
[2022-03-19] MEDS: *HR* HYDROcodone/Acet 10/325 mg TABLET PO PRN ×2 (02:04→09:43)
[2022-03-19 05:15] LABS: Basophils # 0.1 K/mcL (0.0-0.2); Basophils % 0.6 %; Eosinophils # 0.4 K/mcL (0.0-0.6); Eosinophils % 3.4 %; Hemoglobin 8.7 g/dL (12.9-16.9); Immature Granulocytes % 0.5 % (0-4); Lymphocytes # 1.4 K/mcL (0.6-4.6); Mean Corpuscular HGB Conc 31.1 g/dL (31.6-35.5); Mean Corpuscular Hemoglobin 28.2 pg (28.0-33.3); Mean Corpuscular Volume 90.6 fL (83.0-100.0); Mean Platelet Volume 9.8 fL (9.4-12.4); Monocytes # 1.2 K/mcL (0.0-1.3); Monocytes % 11.2 %; Neutrophils # 7.8 K/mcL (1.6-8.9); Platelet Count 368 K/mcL (140-400); Red Blood Count 3.09 M/mcL (4.19-5.50); Red Cell Distribution Width 17.9 % (11.5-14.5); Segmented Neutrophils % 71.3 %
[2022-03-19 05:29] LABS: BUN/Creatinine Ratio 35 (6-26); Blood Urea Nitrogen 30 mg/dL (8-23); Calcium 9.2 mg/dL (8.6-10.3); Carbon Dioxide 28 mEq/L (23-29); Chloride 96 mEq/L (98-107); Glucose 231 mg/dL (70-105); Osmolality,Calculated 288 (280-300); Potassium 4.4 mEq/L (3.5-5.1); Sodium 132 mEq/L (136-145); eGFR For African Americans > 60 (> 60); eGFR For Non-African Americans > 60 (> 60)
[2022-03-19] MEDS: CALCIPOTRIENE TP SCH ×2 (09:36→20:05)
[2022-03-19] MEDS: Gabapentin 400 MG CAPSULE PO SCH ×3 (09:40→20:04)
[2022-03-19] MEDS: polyethylene glycoL 3350 17 GM POWD.PACK PO SCH ×2 (09:40→20:05)
[2022-03-19] MEDS: Simethicone 80 MG TAB.CHEW PO SCH ×4 (09:41→20:03)
[2022-03-19] MEDS: Metoprolol XL (24 HR) Succ 25 MG TAB.ER.24H PO SCH (09:41)
[2022-03-19] MEDS: Sennosides/Docusate Sodium TABLET PO SCH ×2 (09:42→20:05)
[2022-03-19] MEDS: Ascorbic Acid 500 MG TABLET PO SCH ×3 (09:42→20:04)
[2022-03-19] MEDS: Apixaban 5 MG TABLET PO SCH ×2 (09:42→20:04)
[2022-03-19] MEDS: Insulin DETEMIR 100 UNIT/ML X5UNITS SUBQ SCH ×2 (09:44→20:05)
[2022-03-19] MEDS: Insulin LISPRO 300 UNITS/3 ML VIAL SUBQ SCH ×4 (09:45→20:05)
[2022-03-19] MEDS: Cholecalciferol (D-3) 1,000 UNIT (25MCG) TABLET PO SCH (11:47)
[2022-03-19] MEDS: *HR* FentaNYL PATCH 12 MCG PATCH TD SCH (12:16)
[2022-03-19] MEDS: *HR* FentaNYL PATCH 25 MCG PATCH TD SCH (12:16)
[2022-03-19] MEDS: cefTRIAXone 2,000 MG in 0.9 % Sodium Chloride 20 ML IVP SCH (16:15)
[2022-03-19] MEDS: diazePAM 2 MG TABLET PO PRN (17:25)
[2022-03-19 18:02] LABS: Bilirubin,Urine Negative (Negative); Blood,Urine Small (Negative); Clarity,Urine Cloudy (Clear); Color,Urine Yellow (Yellow); Glucose,Urine (UA) Normal (Normal); Ketones,Urine Negative (Negative); Leukocyte Esterase,Urine Large (Negative); Nitrite,Urine Negative (Negative); PH,Urine 5.5 pH Units (5.0-8.0); Protein,Urine 100 mg/dL (Neg-Trace); Urobilinogen,Urine Normal (Normal)
[2022-03-19 18:08] LABS: WBC,Urine TNTC per hpf (0-3)
[2022-03-19 19:50] LABS: Adenovirus Not Detected (Not Detect); Bordetella Pertussis Not Detected (Not Detect); Chlamydophila pneumoniae Not Detected (Not Detect); Coronavirus 229E Not Detected (Not Detect); Coronavirus HKU1 Not Detected (Not Detect); Coronavirus NL63 Not Detected (Not Detect); Coronavirus OC43 Not Detected (Not Detect); Human Metapneumovirus Not Detected (Not Detect); Human Rhinovirus/Enterovirus Not Detected (Not Detect); Influenza A Subtype 2009 H1 Not Detected (Not Detect); Influenza B Not Detected (Not Detect); Mycoplasma pneumoniae Not Detected (Not Detect); Parainfluenza Virus 1 Not Detected (Not Detect); Parainfluenza Virus 2 Not Detected (Not Detect); Parainfluenza Virus 3 Not Detected (Not Detect); Parainfluenza Virus 4 Not Detected (Not Detect); Respiratory Syncytial Virus Not Detected (Not Detect); SARS-CoV-2 Not Detected (Not Detect)
[2022-03-19] MEDS: Melatonin 3 MG TABLET PO SCH (20:04)
[2022-03-19] MEDS: traZODone 50 MG TABLET PO SCH (20:04)
[2022-03-19] MEDS: Ammonium Lactate 30 APPL/225 GM BOTTLE TP SCH (20:05)
[2022-03-20] MEDS: *HR* HYDROcodone/Acet 10/325 mg TABLET PO PRN ×4 (03:04→21:41)
[2022-03-20] MEDS: diazePAM 2 MG TABLET PO PRN ×3 (04:10→21:42)
[2022-03-20] MEDS: Simethicone 80 MG TAB.CHEW PO SCH ×4 (08:57→21:42)
[2022-03-20] MEDS: Metoprolol XL (24 HR) Succ 25 MG TAB.ER.24H PO SCH (08:58)
[2022-03-20] MEDS: Apixaban 5 MG TABLET PO SCH ×2 (08:59→21:40)
[2022-03-20] MEDS: Cholecalciferol (D-3) 1,000 UNIT (25MCG) TABLET PO SCH (08:59)
[2022-03-20] MEDS: Insulin LISPRO 300 UNITS/3 ML VIAL SUBQ SCH ×4 (08:59→21:27)
[2022-03-20] MEDS: Gabapentin 400 MG CAPSULE PO SCH ×3 (08:59→21:40)
[2022-03-20] MEDS: Insulin DETEMIR 100 UNIT/ML X5UNITS SUBQ SCH ×2 (08:59→21:44)
[2022-03-20] MEDS: Ascorbic Acid 500 MG TABLET PO SCH ×3 (08:59→21:41)
[2022-03-20] MEDS: Sennosides/Docusate Sodium TABLET PO SCH ×2 (08:59→21:41)
[2022-03-20] MEDS: polyethylene glycoL 3350 17 GM POWD.PACK PO SCH ×2 (09:01→21:43)
[2022-03-20] MEDS: CALCIPOTRIENE TP SCH ×2 (09:01→21:28)
[2022-03-20] MEDS: cefTRIAXone 2,000 MG in 0.9 % Sodium Chloride 20 ML IVP SCH (15:31)
[2022-03-20] MEDS: traZODone 50 MG TABLET PO SCH (21:40)
[2022-03-20] MEDS: Melatonin 3 MG TABLET PO SCH (21:42)
[2022-03-20] MEDS: Ammonium Lactate 30 APPL/225 GM BOTTLE TP SCH (21:55)
[2022-03-21] MEDS: *HR* HYDROcodone/Acet 10/325 mg TABLET PO PRN ×4 (03:36→21:59)
[2022-03-21 06:02] LABS: Hematocrit 27.4 % (37.5-50.1); Hemoglobin 8.5 g/dL (12.9-16.9); Mean Corpuscular Hemoglobin 27.7 pg (28.0-33.3); Mean Corpuscular Volume 89.3 fL (83.0-100.0); Mean Platelet Volume 9.9 fL (9.4-12.4); Platelet Count 347 K/mcL (140-400); Red Blood Count 3.07 M/mcL (4.19-5.50); Red Cell Distribution Width 17.8 % (11.5-14.5); White Blood Count 9.4 K/mcL (4.3-11.1)
[2022-03-21 06:16] LABS: Alanine Aminotransferase 14 Units/L (7-52); Albumin 2.5 g/dL (3.5-5.7); Albumin/Globulin Ratio 0.5 (1.1-2.2); Alkaline Phosphatase 157 Units/L (34-104); Aspartate Amino Transferase 19 Units/L (13-39); BUN/Creatinine Ratio 32 (6-26); Bilirubin,Total 0.2 mg/dL (0.3-1.0); Blood Urea Nitrogen 29 mg/dL (8-23); Carbon Dioxide 31 mEq/L (23-29); Chloride 97 mEq/L (98-107); Globulin 4.7 g/dL (2.4-3.5); Glucose 273 mg/dL (70-105); Magnesium 1.8 mg/dL (1.6-2.6); Osmolality,Calculated 290 (280-300); Potassium 4.3 mEq/L (3.5-5.1); Sodium 132 mEq/L (136-145); Total Protein 7.2 g/dL (6.4-8.9); eGFR For African Americans > 60 (> 60); eGFR For Non-African Americans > 60 (> 60)
[2022-03-21] MEDS: Simethicone 80 MG TAB.CHEW PO SCH ×4 (06:28→21:58)
[2022-03-21] MEDS ORDERED: polyethylene glycoL 3350 17 GM POWD.PACK PO PRN (09:37)
[2022-03-21] MEDS: Insulin LISPRO 300 UNITS/3 ML VIAL SUBQ SCH ×4 (09:47→22:00)
[2022-03-21] MEDS: Insulin DETEMIR 100 UNIT/ML X5UNITS SUBQ SCH ×2 (09:48→21:40)
[2022-03-21] MEDS: Ascorbic Acid 500 MG TABLET PO SCH ×3 (09:50→21:59)
[2022-03-21] MEDS: Apixaban 5 MG TABLET PO SCH ×2 (09:50→21:59)
[2022-03-21] MEDS: Gabapentin 400 MG CAPSULE PO SCH ×3 (09:50→21:58)
[2022-03-21] MEDS: Cholecalciferol (D-3) 1,000 UNIT (25MCG) TABLET PO SCH (09:50)
[2022-03-21] MEDS: polyethylene glycoL 3350 17 GM POWD.PACK PO SCH (09:51)
[2022-03-21] MEDS: Metoprolol XL (24 HR) Succ 25 MG TAB.ER.24H PO SCH (09:51)
[2022-03-21] MEDS: CALCIPOTRIENE TP SCH ×2 (09:51→21:05)
[2022-03-21] MEDS: Sennosides/Docusate Sodium TABLET PO SCH (09:52)
[2022-03-21 11:41] LABS: C-Reactive Protein 161 mg/L (Less than 10)
[2022-03-21 13:32] LABS: Adenovirus F 40/41 PCR Not detected (Not detect); Astrovirus PCR Not detected (Not detect); C.difficile Toxin A/B Gene PCR Not detected (Not detect); Campylobacter by PCR Not detected (Not detect); Cryptosporidium by PCR Not detected (Not detect); Cyclospora cayetanensis PCR Not detected (Not detect); Entamoeba histolytica PCR Not detected (Not detect); Enteroaggregative E.coli(EAEC) Not detected (Not detect); Enteropathogenic E.coli(EPEC) Not detected (Not detect); Enterotoxigenic E.coli (ETEC) Not detected (Not detect); Giardia lamblia PCR Not detected (Not detect); Norovirus GI/GII PCR Not detected (Not detect); Plesiomonas shigelloides PCR Not detected (Not detect); Rotavirus A PCR Not detected (Not detect); Salmonella PCR Not detected (Not detect); Sapovirus PCR Not detected (Not detect); Shig/EnteroinvasiveE coli EIEC Not detected (Not detect); Shigalike tox-prod E coli STEC Not detected (Not detect); Vibrio PCR Not detected (Not detect); Vibrio cholerae PCR Not detected (Not detect); Yersinia enterocolitica PCR Not detected (Not detect)
[2022-03-21] MEDS: cefTRIAXone 2,000 MG in 0.9 % Sodium Chloride 20 ML IVP SCH (15:12)
[2022-03-21] MEDS: diazePAM 2 MG TABLET PO PRN (18:34)
[2022-03-21] MEDS: Ammonium Lactate 30 APPL/225 GM BOTTLE TP SCH (21:05)
[2022-03-21] MEDS: Melatonin 3 MG TABLET PO SCH (21:59)
[2022-03-21] MEDS: traZODone 50 MG TABLET PO SCH (21:59)
[2022-03-22] MEDS: *HR* HYDROcodone/Acet 10/325 mg TABLET PO PRN ×2 (04:11→09:57)
[2022-03-22] MEDS: Cholecalciferol (D-3) 1,000 UNIT (25MCG) TABLET PO SCH (09:57)
[2022-03-22] MEDS: Metoprolol XL (24 HR) Succ 25 MG TAB.ER.24H PO SCH (09:58)
[2022-03-22] MEDS: Simethicone 80 MG TAB.CHEW PO SCH ×4 (09:58→20:40)
[2022-03-22] MEDS: Gabapentin 400 MG CAPSULE PO SCH ×3 (09:58→20:35)
[2022-03-22] MEDS: Apixaban 5 MG TABLET PO SCH ×2 (09:58→20:36)
[2022-03-22] MEDS: Ascorbic Acid 500 MG TABLET PO SCH ×3 (09:58→20:35)
[2022-03-22] MEDS: CALCIPOTRIENE TP SCH ×2 (09:59→20:37)
[2022-03-22] MEDS: *HR* FentaNYL PATCH 25 MCG PATCH TD SCH (09:59)
[2022-03-22] MEDS: *HR* FentaNYL PATCH 12 MCG PATCH TD SCH (09:59)
[2022-03-22] MEDS: Insulin DETEMIR 100 UNIT/ML X5UNITS SUBQ SCH ×2 (10:04→20:37)
[2022-03-22] MEDS: Insulin LISPRO 300 UNITS/3 ML VIAL SUBQ SCH ×4 (10:06→20:30)
[2022-03-22] MEDS: cefTRIAXone 2,000 MG in 0.9 % Sodium Chloride 20 ML IVP SCH (14:51)
[2022-03-22] MEDS: diazePAM 2 MG TABLET PO PRN (14:51)
[2022-03-22] MEDS: Ammonium Lactate 30 APPL/225 GM BOTTLE TP SCH (20:29)
[2022-03-22] MEDS: Melatonin 3 MG TABLET PO SCH (20:36)
[2022-03-22] MEDS: traZODone 50 MG TABLET PO SCH (20:40)
[2022-03-23] MEDS: *HR* HYDROcodone/Acet 10/325 mg TABLET PO PRN ×3 (00:59→18:43)
[2022-03-23] MEDS: Acetaminophen 325 MG TABLET PO PRN (08:49)
[2022-03-23] MEDS: Metoprolol XL (24 HR) Succ 25 MG TAB.ER.24H PO SCH (08:50)
[2022-03-23] MEDS: Simethicone 80 MG TAB.CHEW PO SCH ×4 (08:50→20:38)
[2022-03-23] MEDS: Apixaban 5 MG TABLET PO SCH ×2 (08:50→20:39)
[2022-03-23] MEDS: Cholecalciferol (D-3) 1,000 UNIT (25MCG) TABLET PO SCH (08:50)
[2022-03-23] MEDS: Ascorbic Acid 500 MG TABLET PO SCH ×3 (08:51→20:39)
[2022-03-23] MEDS: Gabapentin 400 MG CAPSULE PO SCH ×3 (08:51→20:38)
[2022-03-23] MEDS: Insulin LISPRO 300 UNITS/3 ML VIAL SUBQ SCH ×4 (08:51→20:40)
[2022-03-23] MEDS: Insulin DETEMIR 100 UNIT/ML X5UNITS SUBQ SCH ×2 (08:52→20:40)
[2022-03-23] MEDS: CALCIPOTRIENE TP SCH ×2 (08:52→23:32)
[2022-03-23] MEDS: cefTRIAXone 2,000 MG in 0.9 % Sodium Chloride 20 ML IVP SCH (17:01)
[2022-03-23] MEDS: Melatonin 3 MG TABLET PO SCH (20:39)
[2022-03-23] MEDS: traZODone 50 MG TABLET PO SCH (20:39)
[2022-03-23] MEDS: Ammonium Lactate 30 APPL/225 GM BOTTLE TP SCH (20:40)
[2022-03-24 05:36] LABS: Hematocrit 28.4 % (37.5-50.1); Hemoglobin 8.5 g/dL (12.9-16.9); Mean Corpuscular HGB Conc 29.9 g/dL (31.6-35.5); Mean Corpuscular Hemoglobin 27.3 pg (28.0-33.3); Mean Corpuscular Volume 91.3 fL (83.0-100.0); Mean Platelet Volume 9.9 fL (9.4-12.4); Platelet Count 340 K/mcL (140-400); Red Blood Count 3.11 M/mcL (4.19-5.50); Red Cell Distribution Width 17.7 % (11.5-14.5); White Blood Count 8.8 K/mcL (4.3-11.1)
[2022-03-24 06:01] LABS: Albumin 2.5 g/dL (3.5-5.7); Albumin/Globulin Ratio 0.5 (1.1-2.2); Bilirubin,Total 0.2 mg/dL (0.3-1.0); Calcium 9.3 mg/dL (8.6-10.3); Globulin 4.9 g/dL (2.4-3.5); Magnesium 1.8 mg/dL (1.6-2.6); Potassium 4.2 mEq/L (3.5-5.1); Total Protein 7.4 g/dL (6.4-8.9)
[2022-03-24] MEDS: *HR* HYDROcodone/Acet 10/325 mg TABLET PO PRN ×4 (06:11→18:43)
[2022-03-24] MEDS: Metoprolol XL (24 HR) Succ 25 MG TAB.ER.24H PO SCH (08:53)
[2022-03-24] MEDS: Sennosides/Docusate Sodium TABLET PO PRN (08:53)
[2022-03-24] MEDS: Apixaban 5 MG TABLET PO SCH ×2 (08:53→22:02)
[2022-03-24] MEDS: Cholecalciferol (D-3) 1,000 UNIT (25MCG) TABLET PO SCH (08:54)
[2022-03-24] MEDS: Simethicone 80 MG TAB.CHEW PO SCH ×4 (08:54→22:00)
[2022-03-24] MEDS: Ascorbic Acid 500 MG TABLET PO SCH ×3 (08:54→22:01)
[2022-03-24] MEDS: Gabapentin 400 MG CAPSULE PO SCH ×3 (08:54→22:00)
[2022-03-24] MEDS: Insulin LISPRO 300 UNITS/3 ML VIAL SUBQ SCH ×4 (08:54→22:33)
[2022-03-24] MEDS: Insulin DETEMIR 100 UNIT/ML X5UNITS SUBQ SCH ×2 (08:55→22:26)
[2022-03-24] MEDS: CALCIPOTRIENE TP SCH ×2 (08:55→22:36)
[2022-03-24] MEDS: cefTRIAXone 2,000 MG in 0.9 % Sodium Chloride 20 ML IVP SCH (17:37)
[2022-03-24] MEDS: traZODone 50 MG TABLET PO SCH (22:00)
[2022-03-24] MEDS: Melatonin 3 MG TABLET PO SCH (22:02)
[2022-03-24] MEDS: diazePAM 2 MG TABLET PO PRN (22:23)
[2022-03-24] MEDS: Ammonium Lactate 30 APPL/225 GM BOTTLE TP SCH (22:33)
[2022-03-25] MEDS: *HR* HYDROcodone/Acet 10/325 mg TABLET PO PRN ×4 (00:32→22:33)
[2022-03-25] MEDS: Simethicone 80 MG TAB.CHEW PO SCH ×4 (09:46→20:29)
[2022-03-25] MEDS: Cholecalciferol (D-3) 1,000 UNIT (25MCG) TABLET PO SCH (09:46)
[2022-03-25] MEDS: Gabapentin 400 MG CAPSULE PO SCH ×3 (09:46→20:30)
[2022-03-25] MEDS: Metoprolol XL (24 HR) Succ 25 MG TAB.ER.24H PO SCH (09:46)
[2022-03-25] MEDS: Apixaban 5 MG TABLET PO SCH ×2 (09:47→20:30)
[2022-03-25] MEDS: Ascorbic Acid 500 MG TABLET PO SCH ×3 (09:47→20:30)
[2022-03-25] MEDS: Insulin DETEMIR 100 UNIT/ML X5UNITS SUBQ SCH ×2 (09:50→20:31)
[2022-03-25] MEDS: Insulin LISPRO 300 UNITS/3 ML VIAL SUBQ SCH ×4 (09:50→20:03)
[2022-03-25] MEDS: CALCIPOTRIENE TP SCH ×2 (09:58→20:31)
[2022-03-25] MEDS: *HR* FentaNYL PATCH 12 MCG PATCH TD SCH (11:44)
[2022-03-25] MEDS: *HR* FentaNYL PATCH 25 MCG PATCH TD SCH (11:44)
[2022-03-25] MEDS: cefTRIAXone 2,000 MG in 0.9 % Sodium Chloride 20 ML IVP SCH (16:56)
[2022-03-25] MEDS: Melatonin 3 MG TABLET PO SCH (20:30)
[2022-03-25] MEDS: traZODone 50 MG TABLET PO SCH (20:30)
[2022-03-25] MEDS: Sennosides/Docusate Sodium TABLET PO PRN (20:30)
[2022-03-25] MEDS: Ammonium Lactate 30 APPL/225 GM BOTTLE TP SCH (20:31)
[2022-03-25] MEDS: diazePAM 2 MG TABLET PO PRN (22:34)
[2022-03-26] MEDS: *HR* HYDROcodone/Acet 10/325 mg TABLET PO PRN ×3 (04:18→17:24)
[2022-03-26] MEDS: Gabapentin 400 MG CAPSULE PO SCH ×3 (08:55→21:55)
[2022-03-26] MEDS: Ascorbic Acid 500 MG TABLET PO SCH ×3 (08:55→21:55)
[2022-03-26] MEDS: Simethicone 80 MG TAB.CHEW PO SCH ×4 (08:55→21:56)
[2022-03-26] MEDS: Metoprolol XL (24 HR) Succ 25 MG TAB.ER.24H PO SCH (08:56)
[2022-03-26] MEDS: Insulin DETEMIR 100 UNIT/ML X5UNITS SUBQ SCH ×2 (08:57→22:01)
[2022-03-26] MEDS: Insulin LISPRO 300 UNITS/3 ML VIAL SUBQ SCH ×4 (08:58→22:08)
[2022-03-26] MEDS: Apixaban 5 MG TABLET PO SCH ×2 (08:59→21:56)
[2022-03-26] MEDS: CALCIPOTRIENE TP SCH (10:23)
[2022-03-26] MEDS: Cholecalciferol (D-3) 1,000 UNIT (25MCG) TABLET PO SCH (11:49)
[2022-03-26] MEDS: cefTRIAXone 2,000 MG in 0.9 % Sodium Chloride 20 ML IVP SCH (17:01)
[2022-03-26] MEDS: traZODone 50 MG TABLET PO SCH (21:55)
[2022-03-26] MEDS: Melatonin 3 MG TABLET PO SCH (21:55)
[2022-03-26] MEDS: *HR* HYDROcodone/Acet 7.5/325 mg TABLET PO PRN (21:55)
[2022-03-26] MEDS: Ammonium Lactate 30 APPL/225 GM BOTTLE TP SCH (21:56)
[2022-03-27] MEDS: CALCIPOTRIENE TP SCH ×3 (00:33→19:17)
[2022-03-27] MEDS: *HR* HYDROcodone/Acet 10/325 mg TABLET PO PRN ×4 (00:36→21:38)
[2022-03-27] MEDS: diazePAM 2 MG TABLET PO PRN ×2 (00:36→21:38)
[2022-03-27 07:08] LABS: Hematocrit 26.6 % (37.5-50.1); Hemoglobin 8.1 g/dL (12.9-16.9); Mean Corpuscular HGB Conc 30.5 g/dL (31.6-35.5); Mean Corpuscular Hemoglobin 27.6 pg (28.0-33.3); Mean Corpuscular Volume 90.8 fL (83.0-100.0); Mean Platelet Volume 9.9 fL (9.4-12.4); Platelet Count 326 K/mcL (140-400); Red Blood Count 2.93 M/mcL (4.19-5.50); Red Cell Distribution Width 17.2 % (11.5-14.5); White Blood Count 10.2 K/mcL (4.3-11.1)
[2022-03-27 07:22] LABS: Alanine Aminotransferase 13 Units/L (7-52); Albumin 2.5 g/dL (3.5-5.7); Albumin/Globulin Ratio 0.5 (1.1-2.2); Alkaline Phosphatase 146 Units/L (34-104); Aspartate Amino Transferase 16 Units/L (13-39); BUN/Creatinine Ratio 40 (6-26); Bilirubin,Total 0.2 mg/dL (0.3-1.0); Blood Urea Nitrogen 36 mg/dL (8-23); Carbon Dioxide 29 mEq/L (23-29); Chloride 98 mEq/L (98-107); Globulin 4.9 g/dL (2.4-3.5); Glucose 269 mg/dL (70-105); Magnesium 1.9 mg/dL (1.6-2.6); Osmolality,Calculated 296 (280-300); Potassium 4.4 mEq/L (3.5-5.1); Sodium 134 mEq/L (136-145); Total Protein 7.4 g/dL (6.4-8.9)
[2022-03-27] MEDS: Simethicone 80 MG TAB.CHEW PO SCH ×4 (08:39→20:41)
[2022-03-27] MEDS: Gabapentin 400 MG CAPSULE PO SCH ×3 (08:39→20:41)
[2022-03-27] MEDS: Insulin LISPRO 300 UNITS/3 ML VIAL SUBQ SCH ×4 (08:40→20:39)
[2022-03-27] MEDS: Insulin DETEMIR 100 UNIT/ML X5UNITS SUBQ SCH ×2 (08:40→20:39)
[2022-03-27] MEDS: Apixaban 5 MG TABLET PO SCH ×2 (08:40→20:41)
[2022-03-27] MEDS: Metoprolol XL (24 HR) Succ 25 MG TAB.ER.24H PO SCH (08:40)
[2022-03-27] MEDS: Ascorbic Acid 500 MG TABLET PO SCH ×3 (08:40→20:41)
[2022-03-27] MEDS: Cholecalciferol (D-3) 1,000 UNIT (25MCG) TABLET PO SCH (08:40)
[2022-03-27 12:08] LABS: C-Reactive Protein 130 mg/L (Less than 10)
[2022-03-27] MEDS: cefTRIAXone 2,000 MG in 0.9 % Sodium Chloride 20 ML IVP SCH (15:37)
[2022-03-27] MEDS: Melatonin 3 MG TABLET PO SCH (20:41)
[2022-03-27] MEDS: traZODone 50 MG TABLET PO SCH (20:41)
[2022-03-27] MEDS: Ammonium Lactate 30 APPL/225 GM BOTTLE TP SCH (20:42)
[2022-03-28] MEDS: *HR* HYDROcodone/Acet 10/325 mg TABLET PO PRN ×3 (05:41→18:16)
[2022-03-28] MEDS: Cholecalciferol (D-3) 1,000 UNIT (25MCG) TABLET PO SCH (09:05)
[2022-03-28] MEDS: Simethicone 80 MG TAB.CHEW PO SCH ×4 (09:05→20:24)
[2022-03-28] MEDS: Apixaban 5 MG TABLET PO SCH ×2 (09:05→20:23)
[2022-03-28] MEDS: Gabapentin 400 MG CAPSULE PO SCH ×3 (09:05→20:24)
[2022-03-28] MEDS: Metoprolol XL (24 HR) Succ 25 MG TAB.ER.24H PO SCH (09:05)
[2022-03-28] MEDS: Insulin LISPRO 300 UNITS/3 ML VIAL SUBQ SCH ×4 (09:06→20:22)
[2022-03-28] MEDS: CALCIPOTRIENE TP SCH ×2 (09:06→19:10)
[2022-03-28] MEDS: Ascorbic Acid 500 MG TABLET PO SCH ×3 (09:06→20:24)
[2022-03-28] MEDS: Insulin DETEMIR 100 UNIT/ML X5UNITS SUBQ SCH ×2 (09:06→20:22)
[2022-03-28] MEDS: *HR* FentaNYL PATCH 25 MCG PATCH TD SCH (12:07)
[2022-03-28] MEDS: *HR* FentaNYL PATCH 12 MCG PATCH TD SCH (12:07)
[2022-03-28] MEDS: cefTRIAXone 2,000 MG in 0.9 % Sodium Chloride 20 ML IVP SCH (15:27)
[2022-03-28] MEDS: Ammonium Lactate 30 APPL/225 GM BOTTLE TP SCH (19:08)
[2022-03-28] MEDS: traZODone 50 MG TABLET PO SCH (20:24)
[2022-03-28] MEDS: diazePAM 2 MG TABLET PO PRN (20:24)
[2022-03-28] MEDS: Acetaminophen 325 MG TABLET PO PRN (20:24)
[2022-03-28] MEDS: Melatonin 3 MG TABLET PO SCH (20:27)
[2022-03-29] MEDS: *HR* HYDROcodone/Acet 10/325 mg TABLET PO PRN ×4 (00:25→20:23)
[2022-03-29] MEDS: Acetaminophen 325 MG TABLET PO PRN (05:17)
[2022-03-29] MEDS: diazePAM 2 MG TABLET PO PRN ×2 (06:11→20:24)
[2022-03-29] MEDS: Simethicone 80 MG TAB.CHEW PO SCH ×4 (06:11→20:21)
[2022-03-29] MEDS: CALCIPOTRIENE TP SCH ×2 (08:23→19:17)
[2022-03-29] MEDS: Insulin LISPRO 300 UNITS/3 ML VIAL SUBQ SCH ×4 (08:36→20:20)
[2022-03-29] MEDS: Insulin DETEMIR 100 UNIT/ML X5UNITS SUBQ SCH ×2 (08:36→20:20)
[2022-03-29] MEDS: Apixaban 5 MG TABLET PO SCH ×2 (08:37→20:23)
[2022-03-29] MEDS: Ascorbic Acid 500 MG TABLET PO SCH ×3 (08:37→20:23)
[2022-03-29] MEDS: Cholecalciferol (D-3) 1,000 UNIT (25MCG) TABLET PO SCH (08:37)
[2022-03-29] MEDS: Gabapentin 400 MG CAPSULE PO SCH ×3 (08:37→20:23)
[2022-03-29] MEDS: Metoprolol XL (24 HR) Succ 25 MG TAB.ER.24H PO SCH (08:37)
[2022-03-29] MEDS: Sennosides/Docusate Sodium TABLET PO PRN ×2 (12:41→20:24)
[2022-03-29] MEDS ORDERED: CefTRIAXone 2,000 MG VIAL ONE (15:35)
[2022-03-29] MEDS: cefTRIAXone 2,000 MG in 0.9 % Sodium Chloride 20 ML IVP SCH (16:15)
[2022-03-29] MEDS: Ammonium Lactate 30 APPL/225 GM BOTTLE TP SCH (19:16)
[2022-03-29] MEDS: Melatonin 3 MG TABLET PO SCH (20:23)
[2022-03-29] MEDS: traZODone 50 MG TABLET PO SCH (20:23)
[2022-03-30] MEDS: *HR* HYDROcodone/Acet 10/325 mg TABLET PO PRN ×3 (04:13→16:40)
[2022-03-30 04:57] LABS: Hematocrit 26.4 % (37.5-50.1); Hemoglobin 8.1 g/dL (12.9-16.9); Mean Corpuscular HGB Conc 30.7 g/dL (31.6-35.5); Mean Corpuscular Hemoglobin 27.7 pg (28.0-33.3); Mean Corpuscular Volume 90.4 fL (83.0-100.0); Mean Platelet Volume 10.1 fL (9.4-12.4); Platelet Count 336 K/mcL (140-400); Red Blood Count 2.92 M/mcL (4.19-5.50); Red Cell Distribution Width 17.2 % (11.5-14.5); White Blood Count 11.3 K/mcL (4.3-11.1)
[2022-03-30 05:16] LABS: Alanine Aminotransferase 12 Units/L (7-52); Albumin 2.5 g/dL (3.5-5.7); Albumin/Globulin Ratio 0.5 (1.1-2.2); Alkaline Phosphatase 140 Units/L (34-104); Aspartate Amino Transferase 16 Units/L (13-39); BUN/Creatinine Ratio 39 (6-26); Bilirubin,Total 0.2 mg/dL (0.3-1.0); Blood Urea Nitrogen 35 mg/dL (8-23); Carbon Dioxide 29 mEq/L (23-29); Chloride 99 mEq/L (98-107); Globulin 4.8 g/dL (2.4-3.5); Glucose 265 mg/dL (70-105); Magnesium 1.8 mg/dL (1.6-2.6); Osmolality,Calculated 295 (280-300); Potassium 4.4 mEq/L (3.5-5.1); Sodium 134 mEq/L (136-145); Total Protein 7.3 g/dL (6.4-8.9)
[2022-03-30] MEDS: Gabapentin 400 MG CAPSULE PO SCH ×3 (09:27→21:13)
[2022-03-30] MEDS: Apixaban 5 MG TABLET PO SCH ×2 (09:27→21:14)
[2022-03-30] MEDS: diazePAM 2 MG TABLET PO PRN ×2 (09:27→21:14)
[2022-03-30] MEDS: Cholecalciferol (D-3) 1,000 UNIT (25MCG) TABLET PO SCH (09:28)
[2022-03-30] MEDS: Insulin LISPRO 300 UNITS/3 ML VIAL SUBQ SCH ×4 (09:28→21:15)
[2022-03-30] MEDS: Ascorbic Acid 500 MG TABLET PO SCH ×3 (09:28→21:14)
[2022-03-30] MEDS: Metoprolol XL (24 HR) Succ 25 MG TAB.ER.24H PO SCH (09:28)
[2022-03-30] MEDS: CALCIPOTRIENE TP SCH ×2 (09:28→21:16)
[2022-03-30] MEDS: Simethicone 80 MG TAB.CHEW PO SCH ×4 (09:28→21:13)
[2022-03-30] MEDS: Sennosides/Docusate Sodium TABLET PO PRN ×2 (09:40→21:14)
[2022-03-30] MEDS: Insulin DETEMIR 100 UNIT/ML X5UNITS SUBQ SCH ×2 (09:40→21:14)
[2022-03-30 12:40] LABS: C-Reactive Protein 103 mg/L (Less than 10)
[2022-03-30] MEDS: cefTRIAXone 2,000 MG in 0.9 % Sodium Chloride 20 ML IVP SCH (16:38)
[2022-03-30] MEDS: Melatonin 3 MG TABLET PO SCH (21:12)
[2022-03-30] MEDS: traZODone 50 MG TABLET PO SCH (21:14)
[2022-03-30] MEDS: Ammonium Lactate 30 APPL/225 GM BOTTLE TP SCH (21:16)
[2022-03-31] MEDS: *HR* HYDROcodone/Acet 10/325 mg TABLET PO PRN ×4 (00:18→20:27)
[2022-03-31] MEDS: Insulin DETEMIR 100 UNIT/ML X5UNITS SUBQ SCH ×2 (07:47→21:40)
[2022-03-31] MEDS: Insulin LISPRO 300 UNITS/3 ML VIAL SUBQ SCH ×4 (07:51→21:58)
[2022-03-31] MEDS: Metoprolol XL (24 HR) Succ 25 MG TAB.ER.24H PO SCH (07:54)
[2022-03-31] MEDS: Cholecalciferol (D-3) 1,000 UNIT (25MCG) TABLET PO SCH (07:54)
[2022-03-31] MEDS: Gabapentin 400 MG CAPSULE PO SCH ×3 (07:54→21:40)
[2022-03-31] MEDS: Simethicone 80 MG TAB.CHEW PO SCH ×4 (07:54→21:41)
[2022-03-31] MEDS: Apixaban 5 MG TABLET PO SCH ×2 (07:54→21:42)
[2022-03-31] MEDS: Ascorbic Acid 500 MG TABLET PO SCH ×3 (07:55→21:41)
[2022-03-31] MEDS: CALCIPOTRIENE TP SCH ×2 (07:55→22:14)
[2022-03-31] MEDS: Ondansetron ODT 4 MG TAB.RAPDIS SL PRN (09:23)
[2022-03-31] MEDS: *HR* FentaNYL PATCH 25 MCG PATCH TD SCH (11:44)
[2022-03-31] MEDS: *HR* FentaNYL PATCH 12 MCG PATCH TD SCH (11:44)
[2022-03-31] MEDS: cefTRIAXone 2,000 MG in 0.9 % Sodium Chloride 20 ML IVP SCH (16:29)
[2022-03-31] MEDS: Melatonin 3 MG TABLET PO SCH (21:41)
[2022-03-31] MEDS: traZODone 50 MG TABLET PO SCH (21:41)
[2022-03-31] MEDS: diazePAM 2 MG TABLET PO PRN (21:41)
[2022-03-31] MEDS: Ammonium Lactate 30 APPL/225 GM BOTTLE TP SCH (22:04)
[2022-04-01] MEDS: Gabapentin 400 MG CAPSULE PO SCH ×3 (09:14→20:59)
[2022-04-01] MEDS: Ascorbic Acid 500 MG TABLET PO SCH ×3 (09:15→21:00)
[2022-04-01] MEDS: Apixaban 5 MG TABLET PO SCH ×2 (09:15→21:00)
[2022-04-01] MEDS: Insulin DETEMIR 100 UNIT/ML X5UNITS SUBQ SCH ×2 (09:15→21:00)
[2022-04-01] MEDS: CALCIPOTRIENE TP SCH ×2 (09:15→21:01)
[2022-04-01] MEDS: *HR* HYDROcodone/Acet 10/325 mg TABLET PO PRN ×2 (09:15→16:49)
[2022-04-01] MEDS: Simethicone 80 MG TAB.CHEW PO SCH ×4 (09:15→20:58)
[2022-04-01] MEDS: Metoprolol XL (24 HR) Succ 25 MG TAB.ER.24H PO SCH (09:15)
[2022-04-01] MEDS: Cholecalciferol (D-3) 1,000 UNIT (25MCG) TABLET PO SCH (09:15)
[2022-04-01] MEDS: Insulin LISPRO 300 UNITS/3 ML VIAL SUBQ SCH ×4 (09:16→21:00)
[2022-04-01] MEDS: Ondansetron ODT 4 MG TAB.RAPDIS SL PRN (12:36)
[2022-04-01] MEDS: Sennosides/Docusate Sodium TABLET PO PRN (14:03)
[2022-04-01] MEDS: diazePAM 2 MG TABLET PO PRN (14:03)
[2022-04-01] MEDS: cefTRIAXone 2,000 MG in 0.9 % Sodium Chloride 20 ML IVP SCH (16:43)
[2022-04-01] MEDS: traZODone 50 MG TABLET PO SCH (21:00)
[2022-04-01] MEDS: Melatonin 3 MG TABLET PO SCH (21:00)
[2022-04-01] MEDS: Ammonium Lactate 30 APPL/225 GM BOTTLE TP SCH (21:12)
[2022-04-02] MEDS: *HR* HYDROcodone/Acet 10/325 mg TABLET PO PRN ×3 (03:32→15:44)
[2022-04-02] MEDS: Metoprolol XL (24 HR) Succ 25 MG TAB.ER.24H PO SCH (09:28)
[2022-04-02] MEDS: Simethicone 80 MG TAB.CHEW PO SCH ×4 (09:28→21:29)
[2022-04-02] MEDS: Gabapentin 400 MG CAPSULE PO SCH ×3 (09:29→21:26)
[2022-04-02] MEDS: Ascorbic Acid 500 MG TABLET PO SCH ×3 (09:29→21:28)
[2022-04-02] MEDS: Cholecalciferol (D-3) 1,000 UNIT (25MCG) TABLET PO SCH (09:29)
[2022-04-02] MEDS: CALCIPOTRIENE TP SCH ×2 (09:30→21:38)
[2022-04-02] MEDS: Apixaban 5 MG TABLET PO SCH ×2 (09:30→21:27)
[2022-04-02] MEDS: Insulin LISPRO 300 UNITS/3 ML VIAL SUBQ SCH ×4 (09:30→21:30)
[2022-04-02] MEDS: Sennosides/Docusate Sodium TABLET PO PRN ×2 (09:30→21:27)
[2022-04-02] MEDS: Insulin DETEMIR 100 UNIT/ML X5UNITS SUBQ SCH ×2 (09:30→21:31)
[2022-04-02] MEDS: cefTRIAXone 2,000 MG in 0.9 % Sodium Chloride 20 ML IVP SCH (15:45)
[2022-04-02] MEDS: Melatonin 3 MG TABLET PO SCH (21:26)
[2022-04-02] MEDS: diazePAM 2 MG TABLET PO PRN (21:28)
[2022-04-02] MEDS: traZODone 50 MG TABLET PO SCH (21:28)
[2022-04-02] MEDS: Ammonium Lactate 30 APPL/225 GM BOTTLE TP SCH (21:38)
[2022-04-03 05:48] LABS: Basophils % 0.3 %; Eosinophils % 0.3 %; Hematocrit 26.4 % (37.5-50.1); Hemoglobin 8.2 g/dL (12.9-16.9); Immature Granulocytes % 0.9 % (0-4); Lymphocytes # 1.3 K/mcL (0.6-4.6); Lymphocytes % 12.6 %; Mean Corpuscular HGB Conc 31.1 g/dL (31.6-35.5); Mean Corpuscular Hemoglobin 28.3 pg (28.0-33.3); Mean Platelet Volume 9.8 fL (9.4-12.4); Monocytes # 0.9 K/mcL (0.0-1.3); Monocytes % 9.1 %; Neutrophils # 7.9 K/mcL (1.6-8.9); Platelet Count 327 K/mcL (140-400); Red Cell Distribution Width 17.3 % (11.5-14.5); Segmented Neutrophils % 76.8 %; White Blood Count 10.3 K/mcL (4.3-11.1)
[2022-04-03] MEDS: *HR* HYDROcodone/Acet 10/325 mg TABLET PO PRN ×3 (05:58→18:06)
[2022-04-03 06:04] LABS: Calcium 9.4 mg/dL (8.6-10.3); Potassium 4.5 mEq/L (3.5-5.1)
[2022-04-03] MEDS: Metoprolol XL (24 HR) Succ 25 MG TAB.ER.24H PO SCH (09:06)
[2022-04-03] MEDS: Apixaban 5 MG TABLET PO SCH ×2 (09:07→21:38)
[2022-04-03] MEDS: Simethicone 80 MG TAB.CHEW PO SCH ×4 (09:07→21:37)
[2022-04-03] MEDS: diazePAM 2 MG TABLET PO PRN ×2 (09:07→21:37)
[2022-04-03] MEDS: Gabapentin 400 MG CAPSULE PO SCH ×3 (09:07→21:38)
[2022-04-03] MEDS: Ascorbic Acid 500 MG TABLET PO SCH ×3 (09:07→21:37)
[2022-04-03] MEDS: Cholecalciferol (D-3) 1,000 UNIT (25MCG) TABLET PO SCH (09:07)
[2022-04-03] MEDS: *HR* FentaNYL PATCH 25 MCG PATCH TD SCH (09:08)
[2022-04-03] MEDS: *HR* FentaNYL PATCH 12 MCG PATCH TD SCH (09:08)
[2022-04-03] MEDS: Insulin LISPRO 300 UNITS/3 ML VIAL SUBQ SCH ×4 (09:18→21:39)
[2022-04-03] MEDS: CALCIPOTRIENE TP SCH ×2 (09:19→21:40)
[2022-04-03] MEDS: Insulin DETEMIR 100 UNIT/ML X5UNITS SUBQ SCH ×2 (09:21→21:38)
[2022-04-03] MEDS: cefTRIAXone 2,000 MG in 0.9 % Sodium Chloride 20 ML IVP SCH (15:59)
[2022-04-03] MEDS: traZODone 50 MG TABLET PO SCH (21:37)
[2022-04-03] MEDS: Melatonin 3 MG TABLET PO SCH (21:38)
[2022-04-03] MEDS: Sennosides/Docusate Sodium TABLET PO PRN (21:38)
[2022-04-03] MEDS: Ammonium Lactate 30 APPL/225 GM BOTTLE TP SCH (21:40)
[2022-04-04] MEDS: *HR* HYDROcodone/Acet 10/325 mg TABLET PO PRN ×4 (02:24→19:53)
[2022-04-04] MEDS: Metoprolol XL (24 HR) Succ 25 MG TAB.ER.24H PO SCH (09:27)
[2022-04-04] MEDS: Ascorbic Acid 500 MG TABLET PO SCH ×3 (09:28→21:29)
[2022-04-04] MEDS: Simethicone 80 MG TAB.CHEW PO SCH ×4 (09:28→21:40)
[2022-04-04] MEDS: Gabapentin 400 MG CAPSULE PO SCH ×3 (09:28→21:29)
[2022-04-04] MEDS: Apixaban 5 MG TABLET PO SCH ×2 (09:28→21:29)
[2022-04-04] MEDS: Cholecalciferol (D-3) 1,000 UNIT (25MCG) TABLET PO SCH (09:28)
[2022-04-04] MEDS: Insulin LISPRO 300 UNITS/3 ML VIAL SUBQ SCH ×4 (09:41→21:30)
[2022-04-04] MEDS: Insulin DETEMIR 100 UNIT/ML X5UNITS SUBQ SCH ×2 (09:41→21:29)
[2022-04-04] MEDS: CALCIPOTRIENE TP SCH ×2 (09:52→21:31)
[2022-04-04] MEDS ORDERED: *HR* HYDROcodone/Acet 10/325 mg TABLET PO ONE (13:43)
[2022-04-04] MEDS ORDERED: *HR* Dextrose 50 % in Water (Syg) 50 ML SYRINGE IVP PRN (14:57)
[2022-04-04] MEDS ORDERED: Dextrose Gel 15 GM/37.5 ML TUBE PO PRN ×2 (14:57)
[2022-04-04] MEDS ORDERED: D5% in Water 1,000 ML IVC PRN (14:57)
[2022-04-04] MEDS: cefTRIAXone 2,000 MG in 0.9 % Sodium Chloride 20 ML IVP SCH (17:13)
[2022-04-04] MEDS: diazePAM 2 MG TABLET PO PRN (18:21)
[2022-04-04] MEDS: Melatonin 3 MG TABLET PO SCH (21:29)
[2022-04-04] MEDS: traZODone 50 MG TABLET PO SCH (21:29)
[2022-04-04] MEDS: Ammonium Lactate 30 APPL/225 GM BOTTLE TP SCH (21:31)
[2022-04-05] MEDS: diazePAM 2 MG TABLET PO PRN (03:08)
[2022-04-05] MEDS: *HR* HYDROcodone/Acet 10/325 mg TABLET PO PRN ×4 (03:08→22:38)
[2022-04-05] MEDS: Sennosides/Docusate Sodium TABLET PO PRN (03:08)
[2022-04-05] MEDS: Insulin DETEMIR 100 UNIT/ML X5UNITS SUBQ SCH ×2 (08:10→21:32)
[2022-04-05] MEDS: Insulin LISPRO 300 UNITS/3 ML VIAL SUBQ SCH ×4 (08:11→21:33)
[2022-04-05] MEDS: Simethicone 80 MG TAB.CHEW PO SCH ×4 (08:13→21:27)
[2022-04-05] MEDS: Gabapentin 400 MG CAPSULE PO SCH ×3 (08:13→21:28)
[2022-04-05] MEDS: Ascorbic Acid 500 MG TABLET PO SCH ×3 (08:13→21:28)
[2022-04-05] MEDS: Apixaban 5 MG TABLET PO SCH ×2 (08:13→21:28)
[2022-04-05] MEDS: Cholecalciferol (D-3) 1,000 UNIT (25MCG) TABLET PO SCH (08:13)
[2022-04-05] MEDS: Metoprolol XL (24 HR) Succ 25 MG TAB.ER.24H PO SCH (08:13)
[2022-04-05] MEDS: CALCIPOTRIENE TP SCH ×2 (08:14→22:35)
[2022-04-05] MEDS: cefTRIAXone 2,000 MG in 0.9 % Sodium Chloride 20 ML IVP SCH (15:53)
[2022-04-05] MEDS: Melatonin 3 MG TABLET PO SCH (21:28)
[2022-04-05] MEDS: traZODone 50 MG TABLET PO SCH (21:29)
[2022-04-05] MEDS: Ammonium Lactate 30 APPL/225 GM BOTTLE TP SCH (22:30)
[2022-04-05] MEDS: Ondansetron ODT 4 MG TAB.RAPDIS SL PRN (23:20)
[2022-04-06] MEDS: *HR* HYDROcodone/Acet 10/325 mg TABLET PO PRN ×4 (05:01→23:49)
[2022-04-06] MEDS: Gabapentin 400 MG CAPSULE PO SCH ×3 (09:24→21:28)
[2022-04-06] MEDS: Ascorbic Acid 500 MG TABLET PO SCH ×3 (09:25→21:29)
[2022-04-06] MEDS: Apixaban 5 MG TABLET PO SCH ×2 (09:25→21:29)
[2022-04-06] MEDS: Metoprolol XL (24 HR) Succ 25 MG TAB.ER.24H PO SCH (09:25)
[2022-04-06] MEDS: Cholecalciferol (D-3) 1,000 UNIT (25MCG) TABLET PO SCH (09:25)
[2022-04-06] MEDS: Acetaminophen 325 MG TABLET PO PRN (09:25)
[2022-04-06] MEDS: *HR* FentaNYL PATCH 25 MCG PATCH TD SCH (09:25)
[2022-04-06] MEDS: Simethicone 80 MG TAB.CHEW PO SCH ×4 (09:25→21:29)
[2022-04-06] MEDS: *HR* FentaNYL PATCH 12 MCG PATCH TD SCH (09:26)
[2022-04-06] MEDS: Insulin LISPRO 300 UNITS/3 ML VIAL SUBQ SCH ×4 (09:27→21:30)
[2022-04-06] MEDS: Insulin DETEMIR 100 UNIT/ML X5UNITS SUBQ SCH ×2 (09:32→21:29)
[2022-04-06] MEDS: CALCIPOTRIENE TP SCH (10:14)
[2022-04-06] MEDS: cefTRIAXone 2,000 MG in 0.9 % Sodium Chloride 20 ML IVP SCH (17:57)
[2022-04-06 20:20] VITALS: PULSE 93; RESP 15; TEMP 97.9
[2022-04-06] MEDS: traZODone 50 MG TABLET PO SCH (21:28)
[2022-04-06] MEDS: Melatonin 3 MG TABLET PO SCH (21:28)
[2022-04-06] MEDS: Ammonium Lactate 30 APPL/225 GM BOTTLE TP SCH (21:52)
[2022-04-07] MEDS: CALCIPOTRIENE TP SCH ×2 (01:13→09:27)
[2022-04-07 04:48] LABS: Albumin 2.5 g/dL (3.5-5.7); Albumin/Globulin Ratio 0.5 (1.1-2.2); Bilirubin,Total 0.2 mg/dL (0.3-1.0); Potassium 4.6 mEq/L (3.5-5.1); Total Protein 7.5 g/dL (6.4-8.9)
[2022-04-07] MEDS: *HR* HYDROcodone/Acet 10/325 mg TABLET PO PRN ×2 (06:09→11:48)
[2022-04-07] MEDS: Simethicone 80 MG TAB.CHEW PO SCH ×2 (06:55→11:48)
[2022-04-07 06:57] VITALS: BP 129/78; O2SAT 92
[2022-04-07] MEDS: Gabapentin 400 MG CAPSULE PO SCH (09:24)
[2022-04-07] MEDS: Cholecalciferol (D-3) 1,000 UNIT (25MCG) TABLET PO SCH (09:25)
[2022-04-07] MEDS: Ascorbic Acid 500 MG TABLET PO SCH (09:25)
[2022-04-07] MEDS: Apixaban 5 MG TABLET PO SCH (09:25)
[2022-04-07] MEDS: Metoprolol XL (24 HR) Succ 25 MG TAB.ER.24H PO SCH (09:25)
[2022-04-07] MEDS: Insulin DETEMIR 100 UNIT/ML X5UNITS SUBQ SCH (09:26)
[2022-04-07] MEDS: Insulin LISPRO 300 UNITS/3 ML VIAL SUBQ SCH ×2 (09:26→11:49)
== END 2022-04-07 13:00 | DRG 637 ==
LOC: INPGRE 03-11 13:55
PROVIDERS: ADMIT Family Medicine; ATTEND Family Medicine